=== PATIENT | female | born 1980 | race Caucasian/White ===

== ENCOUNTER 2020-10-07 10:40 | Outpatient (REF) | payer OTHER, SELFPAY ==
[2020-10-07 14:24] LABS: Glucose Urine UA NEG (NEG); Leukocyte Esterase Urine NEG (NEG); Nitrite Urine NEG (NEG); Urine Blood NEG (NEG); Urine Ketones NEG (NEG); Urine Protein NEG (NEG-TRACE)
[2020-10-07 14:28] LABS: Appearance Urine CLEAR; Color Urine YELLOW
== END 2020-10-07 10:41 | disposition home or self-care (01) ==
LOC: HO.HMGCLDS 10:40
PROVIDERS: PCP Internal Medicine; Visit Provider Internal Medicine
DX: E03.9 Hypothyroidism, unspecified (principal); E78.2 Mixed hyperlipidemia; M99.04 Segmental and somatic dysfunction of sacral region; F32.9 Major depressive disorder, single episode, unspecified
CPT/HCPCS: 81003

== ENCOUNTER 2020-10-13 08:18 | Outpatient (REF) | payer OTHER, SELFPAY ==
[2020-10-13 11:30] LABS: Hematocrit 40.7 % (37-47); Mean Corpuscular HGB Conc 31.9 g/dl (31.0-35.0); Mean Corpuscular Hemoglobin 29.1 pg (27.0-33.0); Mean Corpuscular Volume 91.3 fL (80-98); Platelet Count 283 X10*3/uL (160-400); Red Blood Count 4.46 X10*6/uL (4.20-5.50); Red Cell Distribution Width 13.2 % (11.0-16.0); White Blood Count 6.2 X10*3/uL (4.8-10.8)
[2020-10-13 11:45] LABS: Alanine Aminotransferase 14 U/L (0-31); Albumin Level 4.6 g/dL (3.5-5.0); Alkaline Phosphatase 68 U/L (39-117); Anion Gap 13 (12-20); Aspartate Amino Transferase 15 U/L (5-31); Bilirubin Total 0.2 mg/dL (0.0-1.0); Blood Urea Nitrogen 8 mg/dL (9-16); Carbon Dioxide 22 mmol/L (22-29); Chloride 103 mmol/L (96-108); Cholesterol 243 mg/dL; Estimated Glomerular Filt Rate > 60; Glucose Fasting 91 mg/dL (60-99); HDL Cholesterol 73 mg/dL; LDL Cholesterol Calculated 155 mg/dl; Potassium 3.4 mmol/l (3.3-5.1); Sodium 135 mmol/L (135-145); Total Protein 7.5 g/dL (6.5-8.0); Triglycerides 78 mg/dL
[2020-10-13 12:10] LABS: TSH reflex Free T4 4.27 mIU/mL (0.32-4.0)
[2020-10-13 12:52] LABS: Free T4 (Free Thyroxine) 0.86 ng/dL (0.71-1.85)
== END 2020-10-13 08:19 | disposition home or self-care (01) ==
LOC: HO.HMGCLDS 08:18
PROVIDERS: PCP Internal Medicine; Visit Provider Internal Medicine
DX: F32.9 Major depressive disorder, single episode, unspecified (principal); E78.2 Mixed hyperlipidemia; E03.9 Hypothyroidism, unspecified; M99.04 Segmental and somatic dysfunction of sacral region
CPT/HCPCS: 36415; 80053; 80061; 84439; 84443; 85027

== ENCOUNTER 2020-12-15 08:38 | Outpatient (REF) | payer OTHER, SELFPAY ==
[2020-12-15 11:57] LABS: Alanine Aminotransferase 18 U/L (0-31); Albumin Level 4.6 g/dL (3.5-5.0); Alkaline Phosphatase 75 U/L (39-117); Anion Gap 12 (12-20); Aspartate Amino Transferase 16 U/L (5-31); Bilirubin Total 0.4 mg/dL (0.0-1.0); Blood Urea Nitrogen 10 mg/dL (9-16); Carbon Dioxide 23 mmol/L (22-29); Chloride 105 mmol/L (96-108); Cholesterol 305 mg/dL; Estimated Glomerular Filt Rate > 60; Glucose Fasting 97 mg/dL (60-99); HDL Cholesterol 56 mg/dL; LDL Cholesterol Calculated 219 mg/dl; Sodium 136 mmol/L (135-145); Total Protein 7.5 g/dL (6.5-8.0); Triglycerides 150 mg/dL
[2020-12-15 11:59] LABS: TSH reflex Free T4 2.91 uIU/mL (0.32-4.0)
== END 2020-12-15 08:39 | disposition home or self-care (01) ==
LOC: HO.HMGCLDS 08:38
PROVIDERS: Internal Medicine; PCP Nurse Practitioner Family; Visit Provider Nurse Practitioner Family
DX: E78.2 Mixed hyperlipidemia (principal); E03.9 Hypothyroidism, unspecified; F32.9 Major depressive disorder, single episode, unspecified
CPT/HCPCS: 36415; 80053; 80061; 84443

== ENCOUNTER 2021-01-12 12:06 | Outpatient (REF) | payer OTHER, SELFPAY | END 2021-01-12 12:07 | disposition home or self-care (01) | LOC: HO.LAB 12:06 | PROVIDERS: Visit Provider Nurse Practitioner Family | DX: J01.00 Acute maxillary sinusitis, unspecified (principal); H65.03 Acute serous otitis media, bilateral; Z20.822 Contact with and (suspected) exposure to COVID-19 | CPT/HCPCS: 36415; U0003; U0005 ==

== ENCOUNTER 2021-01-24 09:09 | Outpatient (REF) | payer OTHER, SELFPAY ==
[2021-01-24 12:07] LABS: Cholesterol 264 mg/dL; HDL Cholesterol 59 mg/dL; LDL Cholesterol Calculated 182 mg/dl; Triglycerides 119 mg/dL
[2021-01-24 12:11] LABS: TSH reflex Free T4 3.77 uIU/mL (0.32-4.0)
== END 2021-01-24 09:10 | disposition home or self-care (01) ==
LOC: HO.HMGCLDS 09:09
PROVIDERS: Internal Medicine; PCP Nurse Practitioner Family; Visit Provider Nurse Practitioner Family
DX: E03.9 Hypothyroidism, unspecified (principal); E78.2 Mixed hyperlipidemia; F32.9 Major depressive disorder, single episode, unspecified
CPT/HCPCS: 36415; 80061; 84443

== ENCOUNTER 2021-02-03 07:58 | Outpatient (REF) | payer OTHER, SELFPAY ==
[2021-02-03 12:08] LABS: Cholesterol 257 mg/dL; HDL Cholesterol 58 mg/dL; LDL Cholesterol Calculated 159 mg/dl; Triglycerides 204 mg/dL
== END 2021-02-03 07:59 | disposition home or self-care (01) ==
LOC: HO.HMGCLDS 07:58
PROVIDERS: PCP Nurse Practitioner Family; Visit Provider Nurse Practitioner Family
DX: E78.2 Mixed hyperlipidemia (principal)
CPT/HCPCS: 36415; 80061

== ENCOUNTER 2021-02-23 15:14 | Outpatient (REF) | payer OTHER, SELFPAY ==
--- NOTE | ~2021-02-23 | MM_ITS ---
EXAMINATION: MM SCREENING DIGITAL BREAST TOMOSYNTHESIS, BILATERAL CLINICAL INFORMATION: Screening. Asymptomatic. The lifetime risk of breast cancer based on the Tyrer-Cuzick Model is 18.0%. COMPARISON: Mammography: None TECHNIQUE: Digital breast tomosynthesis is performed in both the craniocaudal and mediolateral oblique views along with computer-aided detection (CAD). Synthesized 2D images are generated from the tomosynthesis. FINDINGS: The breasts are heterogeneously dense, which may obscure small masses (ACR BI-RADS breast composition Category c). There are no significant masses, abnormal calcifications, or other abnormalities. MM/MM tomosynthesis screening BI IMPRESSION: There are no significant changes from prior study. ASSESSMENT: BI-RADS 1: Negative RECOMMENDATION: Routine annual mammography screening. This patient's information was entered into a reminder system with a target due date for their next mammogram.
== END 2021-02-23 15:15 | disposition home or self-care (01) ==
LOC: HO.MAMMO 15:14
PROVIDERS: Visit Provider Nurse Practitioner Family
DX: Z12.31 Encounter for screening mammogram for malignant neoplasm of breast (principal)
CPT/HCPCS: 77063; 77067

== ENCOUNTER 2021-04-15 08:34 | Outpatient (REF) | payer OTHER, SELFPAY ==
[2021-04-15 12:30] LABS: Cholesterol 166 mg/dL; HDL Cholesterol 38 mg/dL; LDL Cholesterol Calculated 78 mg/dl; Triglycerides 250 mg/dL
== END 2021-04-15 08:35 | disposition home or self-care (01) ==
LOC: HO.HMGCLDS 08:34
PROVIDERS: PCP Nurse Practitioner Family; Visit Provider Nurse Practitioner Family
DX: E78.2 Mixed hyperlipidemia (principal)
CPT/HCPCS: 36415; 80061

== ENCOUNTER 2021-05-12 11:01 | Outpatient (REF) | payer OTHER, SELFPAY ==
--- NOTE | ~2021-05-12 | XR_ITS ---
EXAMINATION: XR RIBS, LEFT CLINICAL INFORMATION: Pleurodynia COMPARISON: None TECHNIQUE: PA chest and three-view left ribs FINDINGS: There is no evidence of acute parenchymal disease, pneumothorax, or pleural effusion. Heart normal size. No evidence of pulmonary edema. Discoid atelectasis or scarring is seen at the left base. No suspicious destructive bony lesion about the left ribs is identified. There is a nondisplaced fracture involving the anterior aspect of the left 10th rib. XR/XR ribs LT min 3V w CXR1V IMPRESSION: Minimal atelectasis or scarring at the left lung base. Nondisplaced fracture anterior aspect of the left 10th rib.
== END 2021-05-12 11:02 | disposition home or self-care (01) ==
LOC: HO.HMGCX 11:01
PROVIDERS: PCP Nurse Practitioner Family; Visit Provider Hospitalist
DX: R07.81 Pleurodynia (principal)
CPT/HCPCS: 71101

== ENCOUNTER 2021-08-08 08:01 | Outpatient (REF) | payer OTHER, SELFPAY ==
[2021-08-08 11:50] LABS: Alanine Aminotransferase 35 U/L (0-31); Alkaline Phosphatase 109 U/L (39-117); Anion Gap 12 (12-20); Aspartate Amino Transferase 20 U/L (5-31); Bilirubin Total 0.2 mg/dL (0.0-1.0); Blood Urea Nitrogen 12 mg/dL (9-16); Calcium 9.1 mg/dL (8.4-10.2); Carbon Dioxide 20 mmol/L (22-29); Chloride 112 mmol/L (96-108); Cholesterol 191 mg/dL; Estimated Glomerular Filt Rate > 60; Glucose Fasting 106 mg/dL (60-99); HDL Cholesterol 41 mg/dL; LDL Cholesterol Calculated 128 mg/dl; Sodium 140 mmol/L (135-145); Total Protein 6.8 g/dL (6.5-8.0); Triglycerides 112 mg/dL
[2021-08-08 12:49] LABS: Free T4 (Free Thyroxine) 0.72 ng/dL (0.71-1.85)
== END 2021-08-08 08:02 | disposition home or self-care (01) ==
LOC: HO.HMGCLDS 08:01
PROVIDERS: PCP Nurse Practitioner Family; Visit Provider Nurse Practitioner Family
DX: Z00.00 Encounter for general adult medical examination without abnormal findings (principal); Z13.29 Encounter for screening for other suspected endocrine disorder; E78.2 Mixed hyperlipidemia
CPT/HCPCS: 36415; 80053; 80061; 84439; 84443

== ENCOUNTER 2021-09-30 09:00 | Outpatient (REF) | payer OTHER, SELFPAY ==
[2021-09-30 12:05] LABS: TSH reflex Free T4 3.15 uIU/mL (0.32-4.0)
[2021-09-30 12:09] LABS: Cholesterol 180 mg/dL; HDL Cholesterol 47 mg/dL; LDL Cholesterol Calculated 109 mg/dl; Triglycerides 120 mg/dL
== END 2021-09-30 09:01 | disposition home or self-care (01) ==
LOC: HO.HMGCLDS 09:00
PROVIDERS: PCP Nurse Practitioner Family; Visit Provider Nurse Practitioner Family
DX: E78.2 Mixed hyperlipidemia (principal); E03.9 Hypothyroidism, unspecified
CPT/HCPCS: 36415; 80061; 84443

== ENCOUNTER 2022-02-24 08:25 | Outpatient (REF) | payer OTHER, SELFPAY ==
[2022-02-24 11:27] LABS: Appearance Urine HAZY; Color Urine YELLOW; Glucose Urine UA NEG (NEG); Leukocyte Esterase Urine NEG (NEG); MANUAL DIFF FLAG NO; Nitrite Urine NEG (NEG); PH 6.5 (5.0-8.0); Specific Gravity - Urine <= 1.005 (1.005-1.025); Urine Blood NEG (NEG); Urine Ketones NEG (NEG); Urine Protein NEG (NEG-TRACE)
[2022-02-24 11:30] LABS: Basophils Absolute Auto 0.1 X10*3/uL (0.0-0.2); Basophils Percent Auto 0.8 % (0-2); Eosinophils Absolute Auto 0.2 X10*3/uL (0.0-0.4); Eosinophils Percent Auto 2.8 % (0-4); Hematocrit 39.9 % (37.0-47.0); Hemoglobin 12.7 g/dl (12.0-16.0); Imm Gran Abs Auto 0.01 X10*3/uL (0.00-0.03); Imm Gran Pct Auto 0.2 % (0.0-0.4); Lymphocytes Absolute Auto 2.1 X10*3/uL (1.2-4.9); Lymphocytes Percent Auto 34.5 % (20-40); Mean Corpuscular HGB Conc 31.8 g/dl (31.0-35.0); Mean Corpuscular Hemoglobin 30.8 pg (27.0-33.0); Mean Corpuscular Volume 96.8 fL (80.0-98.0); Mean Platelet Volume 10.7 fL (9.4-12.3); Monocytes Absolute Auto 0.3 X10*3/uL (0.1-1.2); Monocytes Percent Auto 4.4 % (2-11); Neutrophils Absolute Auto 3.5 x10*3/uL (2.0-8.3); Neutrophils Percent Auto 57.3 % (45-73); Platelet Count 285 X10*3/uL (160-400); Red Blood Count 4.12 X10*6/uL (4.20-5.50); Red Cell Distribution Width 14.5 % (11.0-16.0); White Blood Count 6.1 X10*3/uL (4.8-10.8)
[2022-02-24 12:02] LABS: Alanine Aminotransferase 21 U/L (0-31); Alkaline Phosphatase 83 U/L (39-117); Anion Gap 10 (12-20); Aspartate Amino Transferase 15 U/L (5-31); Bilirubin Total 0.4 mg/dL (0.0-1.0); Blood Urea Nitrogen 11 mg/dL (9-16); Calcium 9.3 mg/dL (8.4-10.2); Carbon Dioxide 23 mmol/L (22-29); Chloride 109 mmol/L (96-108); Cholesterol 172 mg/dL; Estimated Glomerular Filt Rate > 60; Glucose Fasting 93 mg/dL (60-99); HDL Cholesterol 48 mg/dL; LDL Cholesterol Calculated 99 mg/dl; Potassium 3.6 mmol/L (3.3-5.1); Sodium 138 mmol/L (135-145); Total Protein 6.9 g/dL (6.5-8.0); Triglycerides 129 mg/dL
[2022-02-24 12:18] LABS: Folate 3.5 ng/mL (> or = 4.0); Vitamin B12 417 pg/mL (200-900)
[2022-02-24 12:36] LABS: TSH reflex Free T4 5.06 uIU/mL (0.32-4.0)
[2022-02-24 13:13] LABS: Free T4 (Free Thyroxine) 0.73 ng/dL (0.71-1.85)
== END 2022-02-24 08:26 | disposition home or self-care (01) ==
LOC: HO.HMGCLDS 08:25
PROVIDERS: PCP Nurse Practitioner Family; Visit Provider Nurse Practitioner Family
DX: E03.9 Hypothyroidism, unspecified (principal); E66.9 Obesity, unspecified
CPT/HCPCS: 36415; 80053; 80061; 81003; 82607; 82746; 84439; 84443; 85025

== ENCOUNTER 2022-04-05 08:03 | Outpatient (REF) | payer OTHER, SELFPAY ==
[2022-04-05 09:22] LABS: MANUAL DIFF FLAG NO
[2022-04-05 10:09] LABS: Basophils Absolute Auto 0.1 X10*3/uL (0.0-0.2); Basophils Percent Auto 1.4 % (0-2); Eosinophils Absolute Auto 0.3 X10*3/uL (0.0-0.4); Eosinophils Percent Auto 5.3 % (0-4); Hematocrit 38.3 % (37.0-47.0); Hemoglobin 12.5 g/dl (12.0-16.0); Imm Gran Abs Auto 0.02 X10*3/uL (0.00-0.03); Imm Gran Pct Auto 0.3 % (0.0-0.4); Lymphocytes Absolute Auto 2.1 X10*3/uL (1.2-4.9); Lymphocytes Percent Auto 35.1 % (20-40); Mean Corpuscular HGB Conc 32.6 g/dl (31.0-35.0); Mean Corpuscular Hemoglobin 30.8 pg (27.0-33.0); Mean Corpuscular Volume 94.3 fL (80.0-98.0); Mean Platelet Volume 10.4 fL (9.4-12.3); Monocytes Absolute Auto 0.3 X10*3/uL (0.1-1.2); Monocytes Percent Auto 4.6 % (2-11); Neutrophils Absolute Auto 3.1 x10*3/uL (2.0-8.3); Neutrophils Percent Auto 53.3 % (45-73); Platelet Count 259 X10*3/uL (160-400); Red Blood Count 4.06 X10*6/uL (4.20-5.50); Red Cell Distribution Width 13.9 % (11.0-16.0); White Blood Count 5.9 X10*3/uL (4.8-10.8)
[2022-04-05 10:58] LABS: Alanine Aminotransferase 20 U/L (0-31); Albumin Level 3.8 g/dL (3.5-5.0); Alkaline Phosphatase 77 U/L (39-117); Anion Gap 14 (12-20); Aspartate Amino Transferase 16 U/L (5-31); Blood Urea Nitrogen 5 mg/dL (9-16); Calcium 9.3 mg/dL (8.4-10.2); Carbon Dioxide 20 mmol/L (22-29); Chloride 107 mmol/L (96-108); Estimated Glomerular Filt Rate > 60; Glucose Random 95 mg/dL (60-115); Potassium 3.5 mmol/L (3.3-5.1); Sodium 137 mmol/L (135-145); Total Protein 6.6 g/dL (6.5-8.0)
[2022-04-05 11:10] LABS: Bilirubin Total < 0.2 mg/dL (0.0-1.0)
[2022-04-05 11:11] LABS: TSH reflex Free T4 8.18 uIU/mL (0.32-4.0)
[2022-04-05 11:43] LABS: Free T4 (Free Thyroxine) 0.93 ng/dL (0.71-1.85)
[2022-04-05 11:50] LABS: Folate > 20.0 ng/mL (> or = 4.0)
[2022-04-05 12:48] LABS: Cortisol Random 8.9 ug/dL
[2022-04-07 20:17] LABS: Adrenocorticotropic Hormone 7 pg/mL (6-50)
[2022-04-11 11:11] LABS: Renin 3.63 ng/mL/h (0.25-5.82)
== END 2022-04-05 08:04 | disposition home or self-care (01) ==
LOC: HO.HMGCLDS 08:03
PROVIDERS: PCP Nurse Practitioner Family; Visit Provider Nurse Practitioner Family
DX: E53.8 Deficiency of other specified B group vitamins (principal); R79.89 Other specified abnormal findings of blood chemistry; I95.9 Hypotension, unspecified
CPT/HCPCS: 36415; 80053; 82024; 82088; 82533; 82746; 84244; 84439; 84443; 85025

== ENCOUNTER 2022-04-26 11:17 | Outpatient (REF) | payer OTHER, SELFPAY ==
[2022-04-26 14:05] LABS: Sodium 137 mmol/L (135-145)
== END 2022-04-26 11:18 | disposition home or self-care (01) ==
LOC: HO.HMGCLDS 11:17
PROVIDERS: PCP Nurse Practitioner Family; Visit Provider Psychiatry & Neurology Psychiatry
DX: F41.1 Generalized anxiety disorder (principal); F43.10 Post-traumatic stress disorder, unspecified; F33.2 Major depressive disorder, recurrent severe without psychotic features
CPT/HCPCS: 36415; 84295

== ENCOUNTER 2022-05-01 12:15 | Outpatient (REF) | payer OTHER, SELFPAY ==
[2022-05-01 13:36] LABS: MANUAL DIFF FLAG NO
[2022-05-01 13:41] LABS: Basophils Percent Auto 0.7 % (0-2); Eosinophils Absolute Auto 0.2 X10*3/uL (0.0-0.4); Eosinophils Percent Auto 5.3 % (0-4); Hematocrit 33.5 % (37.0-47.0); Hemoglobin 10.7 g/dl (12.0-16.0); Imm Gran Abs Auto 0.01 X10*3/uL (0.00-0.03); Imm Gran Pct Auto 0.2 % (0.0-0.4); Lymphocytes Absolute Auto 1.8 X10*3/uL (1.2-4.9); Lymphocytes Percent Auto 40.9 % (20-40); Mean Corpuscular HGB Conc 31.9 g/dl (31.0-35.0); Mean Corpuscular Hemoglobin 30.8 pg (27.0-33.0); Mean Corpuscular Volume 96.5 fL (80.0-98.0); Monocytes Absolute Auto 0.4 X10*3/uL (0.1-1.2); Monocytes Percent Auto 8.9 % (2-11); Neutrophils Absolute Auto 1.9 x10*3/uL (2.0-8.3); Platelet Count 241 X10*3/uL (160-400); Red Blood Count 3.47 X10*6/uL (4.20-5.50); Red Cell Distribution Width 14.5 % (11.0-16.0); White Blood Count 4.4 X10*3/uL (4.8-10.8)
[2022-05-01 14:02] LABS: Appearance Urine CLEAR; Color Urine YELLOW; Glucose Urine UA NEG (NEG); Leukocyte Esterase Urine NEG (NEG); Nitrite Urine POS (NEG); Specific Gravity - Urine <= 1.005 (1.005-1.025); Urine Blood NEG (NEG); Urine Ketones NEG (NEG); Urine Protein NEG (NEG-TRACE)
[2022-05-01 14:44] LABS: RBC Urine 0 /HPF (0); Squamous Epithelial Cell Urine 1+ /LPF; WBC Urine 0 /HPF (0-4)
[2022-05-01 15:18] LABS: Alanine Aminotransferase 16 U/L (0-31); Alkaline Phosphatase 75 U/L (39-117); Anion Gap 11 (12-20); Aspartate Amino Transferase 19 U/L (5-31); Bilirubin Total 0.3 mg/dL (0.0-1.0); Blood Urea Nitrogen 3 mg/dL (9-16); Calcium 8.4 mg/dL (8.4-10.2); Carbon Dioxide 23 mmol/L (22-29); Chloride 102 mmol/L (96-108); Estimated Glomerular Filt Rate > 60; Glucose Random 84 mg/dL (60-115); Potassium 3.1 mmol/L (3.3-5.1); Sodium 133 mmol/L (135-145); Total Protein 6.5 g/dL (6.5-8.0)
== END 2022-05-01 12:16 | disposition home or self-care (01) ==
LOC: HO.HMGCLDS 12:15
PROVIDERS: Visit Provider Nurse Practitioner Family
DX: N39.0 Urinary tract infection, site not specified (principal)
CPT/HCPCS: 36415; 80053; 81001; 85025; 87086

== ENCOUNTER 2022-05-11 11:04 | Outpatient (REF) | payer OTHER, SELFPAY ==
[2022-05-11 14:21] LABS: Appearance Urine HAZY; Color Urine YELLOW; Glucose Urine UA NEG (NEG); Leukocyte Esterase Urine NEG (NEG); Nitrite Urine NEG (NEG); PH 5.5 (5.0-8.0); Specific Gravity - Urine <= 1.005 (1.005-1.025); Urine Blood NEG (NEG); Urine Ketones NEG (NEG); Urine Protein NEG (NEG-TRACE)
[2022-05-11 14:50] LABS: RBC Urine 0 /HPF (0); Squamous Epithelial Cell Urine TRACE /LPF; WBC Urine 0 /HPF (0-4)
== END 2022-05-11 11:05 | disposition home or self-care (01) ==
LOC: HO.HMGCLDS 11:04
PROVIDERS: PCP Nurse Practitioner Family; Visit Provider Nurse Practitioner Family
DX: N39.0 Urinary tract infection, site not specified (principal)
CPT/HCPCS: 81001; 87086

== ENCOUNTER 2022-05-29 10:29 | Outpatient (REF) | payer OTHER, SELFPAY ==
[2022-05-29 11:14] LABS: MANUAL DIFF FLAG NO
[2022-05-29 11:22] LABS: Basophils Percent Auto 0.7 % (0-2); Eosinophils Percent Auto 0.5 % (0-4); Hemoglobin 13.9 g/dl (12.0-16.0); Imm Gran Abs Auto 0.02 X10*3/uL (0.00-0.03); Imm Gran Pct Auto 0.4 % (0.0-0.4); Immature Retic Fraction 8.2 % (3.0-15.9); Lymphocytes Absolute Auto 1.5 X10*3/uL (1.2-4.9); Lymphocytes Percent Auto 26.9 % (20-40); Mean Corpuscular HGB Conc 33.1 g/dl (31.0-35.0); Mean Corpuscular Hemoglobin 31.5 pg (27.0-33.0); Mean Corpuscular Volume 95.2 fL (80.0-98.0); Mean Platelet Volume 9.6 fL (9.4-12.3); Monocytes Absolute Auto 0.3 X10*3/uL (0.1-1.2); Monocytes Percent Auto 5.6 % (2-11); Neutrophils Absolute Auto 3.7 x10*3/uL (2.0-8.3); Neutrophils Percent Auto 65.9 % (45-73); Platelet Count 284 X10*3/uL (160-400); Red Blood Count 4.41 X10*6/uL (4.20-5.50); Red Cell Distribution Width 13.5 % (11.0-16.0); Retic HGB Equivalent 36.6 pg (30.0-35.0); Reticulocyte Percent 1.7 % (0.5-1.8); Reticulocytes Absolute 0.073 X10*6/uL (0.026-0.095); White Blood Count 5.6 X10*3/uL (4.8-10.8)
[2022-05-29 11:46] LABS: Anion Gap 20 (12-20); Carbon Dioxide 17 mmol/L (22-29); Chloride 103 mmol/L (96-108); Iron 74 mcg/dL (30-160); Percent Iron Saturation 28 % (15-50); Potassium 3.1 mmol/L (3.3-5.1); Sodium 137 mmol/L (135-145); Total Iron Binding Capacity 263 mcg/dL (228-428); Unsaturated Iron Binding 189 ug/dL
[2022-05-29 12:10] LABS: Ferritin 37 ng/mL (10-250); TSH reflex Free T4 0.03 uIU/mL (0.32-4.0)
[2022-05-29 12:51] LABS: Free T4 (Free Thyroxine) 1.62 ng/dL (0.71-1.85)
[2022-05-29 12:53] LABS: Folate > 20.0 ng/mL (> or = 4.0); Vitamin B12 1127 pg/mL (200-900)
== END 2022-05-29 10:30 | disposition home or self-care (01) ==
LOC: HO.HMGCLDS 10:29
PROVIDERS: Visit Provider Nurse Practitioner Family
DX: R79.89 Other specified abnormal findings of blood chemistry (principal); E87.6 Hypokalemia; D64.9 Anemia, unspecified
CPT/HCPCS: 36415; 80051; 82607; 82728; 82746; 83540; 84439; 84443; 85025; 85045

== ENCOUNTER 2022-06-07 11:58 | Outpatient (REF) | payer OTHER, SELFPAY ==
[2022-06-07 13:28] LABS: MANUAL DIFF FLAG NO
[2022-06-07 13:38] LABS: Basophils Percent Auto 0.7 % (0-2); Eosinophils Percent Auto 0.9 % (0-4); Hemoglobin 13.5 g/dl (12.0-16.0); Imm Gran Abs Auto 0.04 X10*3/uL (0.00-0.03); Imm Gran Pct Auto 0.9 % (0.0-0.4); Lymphocytes Absolute Auto 1.6 X10*3/uL (1.2-4.9); Lymphocytes Percent Auto 35.2 % (20-40); Mean Corpuscular HGB Conc 33.8 g/dl (31.0-35.0); Mean Corpuscular Hemoglobin 31.5 pg (27.0-33.0); Mean Corpuscular Volume 93.2 fL (80.0-98.0); Mean Platelet Volume 10.6 fL (9.4-12.3); Monocytes Absolute Auto 0.3 X10*3/uL (0.1-1.2); Monocytes Percent Auto 7.2 % (2-11); Neutrophils Absolute Auto 2.5 x10*3/uL (2.0-8.3); Neutrophils Percent Auto 55.1 % (45-73); Platelet Count 274 X10*3/uL (160-400); Red Blood Count 4.29 X10*6/uL (4.20-5.50); Red Cell Distribution Width 13.9 % (11.0-16.0); White Blood Count 4.5 X10*3/uL (4.8-10.8)
[2022-06-07 14:34] LABS: TSH reflex Free T4 0.17 uIU/mL (0.32-4.0)
[2022-06-07 15:08] LABS: Alanine Aminotransferase 16 U/L (0-31); Albumin Level 4.3 g/dL (3.5-5.0); Alkaline Phosphatase 70 U/L (39-117); Anion Gap 17 (12-20); Aspartate Amino Transferase 16 U/L (5-31); Bilirubin Total 0.3 mg/dL (0.0-1.0); Blood Urea Nitrogen 8 mg/dL (9-16); Carbon Dioxide 20 mmol/L (22-29); Chloride 105 mmol/L (96-108); Estimated Glomerular Filt Rate > 60; Glucose Random 83 mg/dL (60-115); Potassium 3.3 mmol/L (3.3-5.1); Sodium 139 mmol/L (135-145); Total Protein 6.8 g/dL (6.5-8.0)
[2022-06-07 15:49] LABS: Free T4 (Free Thyroxine) 1.26 ng/dL (0.71-1.85)
== END 2022-06-07 11:59 | disposition home or self-care (01) ==
LOC: HO.HMGCLDS 11:58
PROVIDERS: PCP Nurse Practitioner Family; Visit Provider Nurse Practitioner Family
DX: F43.10 Post-traumatic stress disorder, unspecified (principal); R44.3 Hallucinations, unspecified
CPT/HCPCS: 36415; 80053; 84439; 84443; 85025; 87086

== ENCOUNTER 2022-06-08 11:37 | Outpatient (REF) | payer OTHER, SELFPAY ==
[2022-06-08 13:58] LABS: Appearance Urine CLEAR; Color Urine YELLOW; Glucose Urine UA NEG (NEG); Leukocyte Esterase Urine NEG (NEG); Nitrite Urine NEG (NEG); Urine Blood NEG (NEG); Urine Ketones >=80 MG/DL (NEG); Urine Protein NEG (NEG-TRACE)
== END 2022-06-08 11:38 | disposition home or self-care (01) ==
LOC: HO.HMGCLDS 11:37
PROVIDERS: PCP Nurse Practitioner Family; Visit Provider Nurse Practitioner Family
DX: N39.0 Urinary tract infection, site not specified (principal)
CPT/HCPCS: 81003; 87086

== ENCOUNTER 2022-06-28 11:27 | Outpatient (REF) | payer OTHER, SELFPAY ==
[2022-06-28 14:48] LABS: TSH reflex Free T4 0.01 uIU/mL (0.32-4.0)
[2022-06-28 15:34] LABS: Free T4 (Free Thyroxine) 1.19 ng/dL (0.71-1.85)
== END 2022-06-28 11:28 | disposition home or self-care (01) ==
LOC: HO.HMGCLDS 11:27
PROVIDERS: PCP Nurse Practitioner Family; Visit Provider Nurse Practitioner Family
DX: E03.9 Hypothyroidism, unspecified (principal)
CPT/HCPCS: 36415; 84439; 84443

== ENCOUNTER 2022-06-29 11:00 | Outpatient (REF) | payer OTHER, SELFPAY ==
[2022-06-29 14:53] LABS: Appearance Urine Cloudy; Color Urine Yellow; Glucose Urine UA Negative (Negative); Leukocyte Esterase Urine Negative (Negative); Nitrite Urine Negative (Negative); PH 6.5 (5.0-8.0); Specific Gravity - Urine <= 1.005 (1.005-1.025); Urine Blood Negative (Negative); Urine Ketones Negative (Negative); Urine Protein Negative (Neg-Trace)
[2022-06-29 15:39] LABS: Bacteria Urine 4+ (None Seen); Granular Casts Urine Present; RBC Urine 0-2 /HPF (0-2); WBC Urine 21-50 /HPF (0-5)
== END 2022-06-29 11:01 | disposition home or self-care (01) ==
LOC: HO.HMGCLDS 11:00
PROVIDERS: PCP Nurse Practitioner Family; Visit Provider Nurse Practitioner Family
DX: N39.0 Urinary tract infection, site not specified (principal); R44.3 Hallucinations, unspecified; F43.10 Post-traumatic stress disorder, unspecified
CPT/HCPCS: 81001; 87086

== ENCOUNTER → 2022-07-19 14:27 | Outpatient (BNVA) | payer OTHER, SELFPAY | PROVIDERS: PCP Nurse Practitioner Family; Referring Provider Nurse Practitioner Family; Visit Provider Internal Medicine | DX: I95.9 Hypotension, unspecified (principal) | CPT/HCPCS: 99202 ==

== ENCOUNTER 2022-07-31 12:42 | Outpatient (REF) | payer OTHER, SELFPAY ==
[2022-07-31 16:33] LABS: Appearance Urine Clear; Color Urine Yellow; Glucose Urine UA Negative (Negative); Leukocyte Esterase Urine Negative (Negative); Nitrite Urine Negative (Negative); PH 6.5 (5.0-9.0); Specific Gravity - Urine <= 1.005 (1.005-1.025); Urine Blood Negative (Negative); Urine Ketones Negative (Negative); Urine Protein Negative (Neg-Trace)
[2022-07-31 16:37] LABS: Bacteria Urine 1+ (None Seen); Hyaline Casts Urine 0-2 /LPF (0-2)
== END 2022-07-31 12:43 | disposition home or self-care (01) ==
LOC: HO.HMGCLDS 12:42
PROVIDERS: PCP Nurse Practitioner Family; Visit Provider Nurse Practitioner Family
DX: R44.3 Hallucinations, unspecified (principal)
CPT/HCPCS: 81001; 87086

== ENCOUNTER 2022-12-05 12:06 | Outpatient (REF) | payer OTHER, SELFPAY ==
[2022-12-05 13:58] LABS: Appearance Urine Cloudy; Color Urine Yellow; Glucose Urine UA Negative (Negative); Leukocyte Esterase Urine Negative (Negative); Nitrite Urine Negative (Negative); Specific Gravity - Urine <= 1.005 (1.005-1.025); UMIC TRIGGER UACC YES; Urine Blood Large (3+) (Negative); Urine Ketones Negative (Negative); Urine Protein Negative (Neg-Trace)
[2022-12-05 14:00] LABS: Bacteria Urine None Seen (None Seen); Hyaline Casts Urine 0-2 /LPF (0-2); RBC Urine >20 /HPF (0-2); WBC Urine 0-5 /HPF (0-5)
== END 2022-12-05 12:07 | disposition home or self-care (01) ==
LOC: HO.HMGCLDS 12:06
PROVIDERS: PCP Nurse Practitioner Family; Visit Provider Nurse Practitioner Family
DX: F43.10 Post-traumatic stress disorder, unspecified (principal); E03.9 Hypothyroidism, unspecified
CPT/HCPCS: 81001

== ENCOUNTER 2023-02-01 15:01 | Outpatient (REF) | payer OTHER, SELFPAY ==
--- NOTE | ~2023-02-01 | MM_ITS ---
EXAMINATION: MM SCREENING DIGITAL BREAST TOMOSYNTHESIS, BILATERAL CLINICAL INFORMATION: Screening. Asymptomatic. The lifetime risk of breast cancer based on the Tyrer-Cuzick Model is 19.3%. COMPARISON: Mammography: February 23, 2021 TECHNIQUE: Digital breast tomosynthesis is performed in both the craniocaudal and mediolateral oblique views along with computer-aided detection (CAD). Synthesized 2D images are generated from the tomosynthesis. FINDINGS: The breasts are heterogeneously dense, which may obscure small masses (ACR BI-RADS breast composition Category c). There are no significant masses, abnormal calcifications, or other abnormalities. MM/MM tomosynthesis screening BI IMPRESSION: No significant changes from prior exam. ASSESSMENT: BI-RADS 1: Negative RECOMMENDATION: Routine annual mammography screening. This patient's information was entered into a reminder system with a target due date for their next mammogram.
== END 2023-02-01 15:02 | disposition home or self-care (01) ==
LOC: HO.MAMMO 15:01
PROVIDERS: PCP Nurse Practitioner Family; Visit Provider Nurse Practitioner Family
DX: Z12.31 Encounter for screening mammogram for malignant neoplasm of breast (principal)
CPT/HCPCS: 77063; 77067

== ENCOUNTER 2023-03-28 13:50 | Outpatient (REF) | payer OTHER, SELFPAY ==
[2023-03-28 16:25] LABS: MANUAL DIFF FLAG NO
[2023-03-28 16:28] LABS: Appearance Urine Clear; Color Urine Yellow; Glucose Urine UA Negative (Negative); Leukocyte Esterase Urine Negative (Negative); Nitrite Urine Negative (Negative); Specific Gravity - Urine <= 1.005 (1.005-1.025); Urine Blood Negative (Negative); Urine Ketones Negative (Negative); Urine Protein Negative (Neg-Trace)
[2023-03-28 16:30] LABS: Basophils Absolute Auto 0.1 X10*3/uL (0.0-0.2); Basophils Percent Auto 1.4 % (0-2); Eosinophils Absolute Auto 0.1 X10*3/uL (0.0-0.4); Eosinophils Percent Auto 2.3 % (0-4); Hematocrit 34.2 % (37.0-47.0); Lymphocytes Absolute Auto 1.6 X10*3/uL (1.2-4.9); Lymphocytes Percent Auto 45.8 % (20-40); Mean Corpuscular HGB Conc 32.2 g/dl (31.0-35.0); Mean Corpuscular Hemoglobin 30.2 pg (27.0-33.0); Mean Platelet Volume 9.6 fL (9.4-12.3); Monocytes Absolute Auto 0.2 X10*3/uL (0.1-1.2); Monocytes Percent Auto 6.8 % (2-11); Neutrophils Absolute Auto 1.6 x10*3/uL (2.0-8.3); Neutrophils Percent Auto 43.7 % (45-73); Platelet Count 212 X10*3/uL (160-400); Red Blood Count 3.64 X10*6/uL (4.20-5.50); Red Cell Distribution Width 13.2 % (11.0-16.0); White Blood Count 3.5 X10*3/uL (4.8-10.8)
[2023-03-28 16:49] LABS: Alanine Aminotransferase 24 U/L (0-31); Albumin Level 4.3 g/dL (3.5-5.0); Alkaline Phosphatase 61 U/L (39-117); Anion Gap 9 (12-20); Aspartate Amino Transferase 20 U/L (5-31); Bilirubin Total 0.3 mg/dL (0.0-1.0); Blood Urea Nitrogen 12 mg/dL (9-16); Carbon Dioxide 26 mmol/L (22-29); Chloride 109 mmol/L (96-108); Estimated Glomerular Filt Rate > 60; Glucose Random 88 mg/dL (60-115); Potassium 3.6 mmol/L (3.3-5.1); Sodium 140 mmol/L (135-145); Total Protein 6.8 g/dL (6.5-8.0)
[2023-03-28 17:04] LABS: TSH reflex Free T4 5.46 uIU/mL (0.32-4.0)
[2023-03-28 17:50] LABS: Free T4 (Free Thyroxine) 0.87 ng/dL (0.71-1.85)
== END 2023-03-28 13:51 | disposition home or self-care (01) ==
LOC: HO.HMGCLDS 13:50
PROVIDERS: PCP Nurse Practitioner Family; Visit Provider Nurse Practitioner Family
DX: R79.89 Other specified abnormal findings of blood chemistry (principal)
CPT/HCPCS: 36415; 80053; 81003; 84439; 84443; 85025

== ENCOUNTER 2023-05-16 11:27 | Outpatient (AMB) | payer OTHER, SELFPAY ==
[2023-05-16 11:31] VITALS: BP 100/62; PULSE 78; TEMP 36.4; O2SAT 100
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
== END 2023-05-16 12:15 | disposition home or self-care (01) ==
PROVIDERS: PCP Nurse Practitioner Family; Visit Provider Physician Assistant
DX: R39.9 Unspecified symptoms and signs involving the genitourinary system (principal); Z13.9 Encounter for screening, unspecified
CPT/HCPCS: 81003; 99213

== ENCOUNTER 2023-05-22 11:00 | Outpatient (REF) | payer OTHER, SELFPAY ==
[2023-05-22 13:31] LABS: MANUAL DIFF FLAG NO
[2023-05-22 13:55] LABS: Basophils Absolute Auto 0.1 X10*3/uL (0.0-0.2); Basophils Percent Auto 1.3 % (0-2); Eosinophils Absolute Auto 0.1 X10*3/uL (0.0-0.4); Eosinophils Percent Auto 2.5 % (0-4); Hematocrit 37.9 % (37.0-47.0); Hemoglobin 11.9 g/dl (12.0-16.0); Immature Retic Fraction 5.6 % (3.0-15.9); Lymphocytes Absolute Auto 1.4 X10*3/uL (1.2-4.9); Lymphocytes Percent Auto 34.1 % (20-40); Mean Corpuscular HGB Conc 31.4 g/dl (31.0-35.0); Mean Corpuscular Hemoglobin 30.7 pg (27.0-33.0); Mean Corpuscular Volume 97.9 fL (80.0-98.0); Mean Platelet Volume 10.2 fL (9.4-12.3); Monocytes Absolute Auto 0.2 X10*3/uL (0.1-1.2); Monocytes Percent Auto 5.6 % (2-11); Neutrophils Absolute Auto 2.2 x10*3/uL (2.0-8.3); Neutrophils Percent Auto 56.5 % (45-73); Platelet Count 195 X10*3/uL (160-400); Red Blood Count 3.87 X10*6/uL (4.20-5.50); Retic HGB Equivalent 34.6 pg (30.0-35.0); Reticulocytes Absolute 0.037 X10*6/uL (0.026-0.095)
[2023-05-22 14:40] LABS: Iron 69 mcg/dL (30-160); Percent Iron Saturation 29 % (15-50); Total Iron Binding Capacity 238 mcg/dL (228-428); Unsaturated Iron Binding 169 ug/dL
[2023-05-22 15:02] LABS: Ferritin 49 ng/mL (10-250)
[2023-05-22 18:42] LABS: Folate 14.4 ng/mL (> or = 4.0); Vitamin B12 485 pg/mL (200-900)
[2023-05-28 10:52] LABS: Hematocrit 35.5 % (35.0-45.0); Hemoglobin 11.9 g/dL (11.7-15.5); MCH 30.8 pg (27.0-33.0); RBC 3.86 Million/uL (3.80-5.10); RDW 12.3 % (11.0-15.0)
== END 2023-05-22 11:01 | disposition home or self-care (01) ==
LOC: HO.HMGCLDS 11:00
PROVIDERS: PCP Nurse Practitioner Family; Visit Provider Nurse Practitioner Family
DX: D64.9 Anemia, unspecified (principal)
CPT/HCPCS: 36415; 82607; 82728; 82746; 83020; 83540; 85014; 85018; 85025; 85041; 85045

== ENCOUNTER 2023-05-23 14:44 | Outpatient (AMB) | payer OTHER, SELFPAY ==
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
[2023-05-23 16:09] VITALS: BP 98/72; PULSE 87; TEMP 37; O2SAT 97
== END 2023-05-23 16:38 | disposition home or self-care (01) ==
PROVIDERS: PCP Nurse Practitioner Family; Visit Provider Internal Medicine
DX: I80.9 Phlebitis and thrombophlebitis of unspecified site (principal)
CPT/HCPCS: 99213

== ENCOUNTER 2023-06-04 11:08 | Outpatient (AMB) | payer OTHER, SELFPAY ==
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
[2023-06-04 11:11] VITALS: BP 90/60; PULSE 84; TEMP 35.5; O2SAT 97
== END 2023-06-04 12:28 | disposition home or self-care (01) ==
PROVIDERS: PCP Nurse Practitioner Family; Visit Provider Internal Medicine
DX: S53.402A Unspecified sprain of left elbow, initial encounter (principal)
CPT/HCPCS: 99214

== ENCOUNTER 2023-06-04 11:35 | Outpatient (REF) | payer OTHER, SELFPAY ==
--- NOTE | ~2023-06-04 | XR_ITS ---
EXAMINATION: XR ELBOW, LEFT CLINICAL INFORMATION: Elbow sprain COMPARISON: None available. TECHNIQUE: AP, lateral, and oblique views of the left elbow. FINDINGS: No fracture or joint effusion. Alignment is anatomic. Joint spaces are maintained. No abnormal soft tissue calcification. XR/XR elbow LT 2V IMPRESSION: No evidence of acute osseous abnormality.
== END 2023-06-04 11:36 | disposition home or self-care (01) ==
LOC: HO.HMGCX 11:35
PROVIDERS: PCP Nurse Practitioner Family; Visit Provider Internal Medicine
DX: S53.402A Unspecified sprain of left elbow, initial encounter (principal)
CPT/HCPCS: 73070

== ENCOUNTER 2023-06-28 14:19 | Outpatient (AMB) | payer OTHER, SELFPAY ==
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
[2023-06-28 14:31] VITALS: BP 110/70; PULSE 83; TEMP 36.3; O2SAT 98
== END 2023-06-28 15:47 | disposition home or self-care (01) ==
PROVIDERS: PCP Nurse Practitioner Family; Visit Provider Physician Assistant
DX: N39.0 Urinary tract infection, site not specified (principal)
CPT/HCPCS: 81003; 82948; 99213

== ENCOUNTER 2023-07-20 11:31 | Outpatient (REF) | payer OTHER, SELFPAY ==
[2023-07-20 19:27] LABS: CT PCR NOT DETECTED (Not Detect.); NG PCR NOT DETECTED (Not Detect.)
[2023-07-21 12:50] LABS: BV Int Neg Control Negative (Negative); BV Int Pos Control Positive (Positive)
[2023-07-25 07:28] LABS: HPV mRNA E6/E7 rflx Not Detected (Not Detected)
== END 2023-07-20 11:32 | disposition home or self-care (01) ==
LOC: HO.LNP 11:31
PROVIDERS: PCP Nurse Practitioner Family; Visit Provider Advanced Practice Midwife
DX: Z01.419 Encounter for gynecological examination (general) (routine) without abnormal findings (principal); F43.10 Post-traumatic stress disorder, unspecified; R33.9 Retention of urine, unspecified; Z20.2 Contact with and (suspected) exposure to infections with a predominantly sexual mode of transmission; Z79.899 Other long term (current) drug therapy
CPT/HCPCS: 0353U; 87480; 87510; 87624; 87660; 88142; 99386

== ENCOUNTER 2023-07-20 11:31 | Outpatient (AMB) | payer OTHER, SELFPAY ==
[2023-07-20 11:35] VITALS: BP 120/80; BMI 20.8
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
== END 2023-07-20 12:58 | disposition home or self-care (01) ==
PROVIDERS: PCP Nurse Practitioner Family; Visit Provider Advanced Practice Midwife
DX: Z01.419 Encounter for gynecological examination (general) (routine) without abnormal findings (principal); F43.10 Post-traumatic stress disorder, unspecified
CPT/HCPCS: 99386

== ENCOUNTER 2023-07-30 13:14 | Outpatient (AMB) | payer OTHER, SELFPAY ==
[2023-07-30 13:50] VITALS: BP 118/74; PULSE 80; TEMP 36.4; O2SAT 98; BMI 20.8
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
== END 2023-07-30 14:16 | disposition home or self-care (01) ==
PROVIDERS: PCP Nurse Practitioner Family; Visit Provider Physician Assistant
DX: J01.00 Acute maxillary sinusitis, unspecified (principal)
CPT/HCPCS: 99213

== ENCOUNTER 2023-07-30 14:27 | Outpatient (REF) | payer OTHER, SELFPAY ==
[2023-07-30 18:08] LABS: Influenza A PCR NEGATIVE (Negative); Influenza B PCR NEGATIVE (Negative); Resp Syncy Virus RNA Qual PCR NEGATIVE (Negative); SARS COV2 PCR INHOUSE NEGATIVE (Negative)
== END 2023-07-30 14:28 | disposition home or self-care (01) ==
LOC: HO.LAB 14:27
PROVIDERS: Visit Provider Physician Assistant
DX: B34.9 Viral infection, unspecified (principal); Z20.822 Contact with and (suspected) exposure to COVID-19
CPT/HCPCS: 0241U

== ENCOUNTER 2023-09-24 06:13 | Outpatient (REF) | payer OTHER, SELFPAY ==
[2023-09-24 11:33] LABS: MANUAL DIFF FLAG NO
[2023-09-24 11:35] LABS: Appearance Urine Clear; Color Urine Yellow; Glucose Urine UA Negative (Negative); Leukocyte Esterase Urine Small (1+) (Negative); Nitrite Urine Negative (Negative); Specific Gravity - Urine <= 1.005 (1.005-1.025); UMIC TRIGGER UACC YES; Urine Blood Negative (Negative); Urine Ketones Negative (Negative); Urine Protein Negative (Neg-Trace)
[2023-09-24 11:41] LABS: Basophils Absolute Auto 0.1 X10*3/uL (0.0-0.2); Eosinophils Absolute Auto 0.2 X10*3/uL (0.0-0.4); Eosinophils Percent Auto 2.3 % (0-4); Hematocrit 39.9 % (37.0-47.0); Imm Gran Abs Auto 0.02 X10*3/uL (0.00-0.03); Imm Gran Pct Auto 0.3 % (0.0-0.4); Lymphocytes Absolute Auto 1.5 X10*3/uL (1.2-4.9); Mean Corpuscular HGB Conc 30.1 g/dl (31.0-35.0); Mean Corpuscular Volume 99.8 fL (80.0-98.0); Mean Platelet Volume 9.6 fL (9.4-12.3); Monocytes Absolute Auto 0.4 X10*3/uL (0.1-1.2); Monocytes Percent Auto 5.6 % (2-11); Neutrophils Absolute Auto 4.8 x10*3/uL (2.0-8.3); Neutrophils Percent Auto 68.8 % (45-73); Platelet Count 329 X10*3/uL (160-400); Red Cell Distribution Width 13.9 % (11.0-16.0)
[2023-09-24 11:41] LABS: Bacteria Urine 1+ (None Seen); Hyaline Casts Urine 0-2 /LPF (0-2); RBC Urine 0-2 /HPF (0-2); UACC Culture Trigger YES
[2023-09-24 12:30] LABS: TSH reflex Free T4 3.29 uIU/mL (0.32-4.0)
[2023-09-24 12:33] LABS: Anion Gap 11 (12-20)
[2023-09-24 12:38] LABS: Alanine Aminotransferase 17 U/L (0-31); Alkaline Phosphatase 67 U/L (39-117); Aspartate Amino Transferase 16 U/L (5-31); Bilirubin Total 0.1 mg/dL (0.0-1.0); Blood Urea Nitrogen 13 mg/dL (9-16); Calcium 10.1 mg/dL (8.4-10.2); Carbon Dioxide 22 mmol/L (22-29); Chloride 110 mmol/L (96-108); Cholesterol 202 mg/dL (<200); Estimated Glomerular Filt Rate > 60; Glucose Fasting 75 mg/dL (60-99); HDL Cholesterol 74 mg/dL (>40); LDL Cholesterol Calculated 103 mg/dL (<100); Sodium 139 mmol/L (135-145); Total Protein 7.3 g/dL (6.5-8.0); Triglycerides 128 mg/dL (<150)
== END 2023-09-24 06:14 | disposition home or self-care (01) ==
LOC: HO.HMGCLDS 06:13
PROVIDERS: PCP Nurse Practitioner Family; Visit Provider Nurse Practitioner Family
DX: Z00.00 Encounter for general adult medical examination without abnormal findings (principal)
CPT/HCPCS: 36415; 80053; 80061; 81001; 84443; 85025; 87086

== ENCOUNTER 2023-12-10 08:23 | Outpatient (AMB) | payer OTHER, SELFPAY ==
[2023-12-10 08:51] VITALS: BP 110/72; PULSE 93; TEMP 36.3; O2SAT 96; BMI 25.7
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
== END 2023-12-10 09:46 | disposition home or self-care (01) ==
PROVIDERS: PCP Nurse Practitioner Family; Visit Provider Registered Nurse Emergency
DX: J06.9 Acute upper respiratory infection, unspecified (principal)
CPT/HCPCS: 87880; 99213

== ENCOUNTER 2023-12-10 09:24 | Outpatient (REF) | payer OTHER, SELFPAY ==
[2023-12-10 13:21] LABS: Influenza A PCR NEGATIVE (Negative); Influenza B PCR NEGATIVE (Negative); Resp Syncy Virus RNA Qual PCR NEGATIVE (Negative); SARS COV2 PCR INHOUSE NEGATIVE (Negative)
== END 2023-12-10 09:25 | disposition home or self-care (01) ==
LOC: HO.LAB 09:24
PROVIDERS: Visit Provider Registered Nurse Emergency
DX: J06.9 Acute upper respiratory infection, unspecified (principal); Z11.52 Encounter for screening for COVID-19; Z20.828 Contact with and (suspected) exposure to other viral communicable diseases
CPT/HCPCS: 0241U

== ENCOUNTER 2024-02-28 08:52 | Outpatient (AMB) | payer OTHER, SELFPAY ==
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
[2024-02-28 08:59] VITALS: BP 114/78; PULSE 78; O2SAT 99
== END 2024-02-28 09:27 | disposition home or self-care (01) ==
PROVIDERS: PCP Nurse Practitioner Family; Visit Provider Nurse Practitioner Family
DX: R14.0 Abdominal distension (gaseous) (principal); R44.0 Auditory hallucinations
CPT/HCPCS: 99213

== ENCOUNTER 2024-03-06 07:17 | Outpatient (REF) | payer OTHER, SELFPAY ==
[2024-03-06 10:17] LABS: MANUAL DIFF FLAG NO
[2024-03-06 10:37] LABS: Basophils Percent Auto 0.8 % (0-2); Eosinophils Absolute Auto 0.1 X10*3/uL (0.0-0.4); Eosinophils Percent Auto 1.9 % (0-4); Hematocrit 35.8 % (37.0-47.0); Hemoglobin 11.3 g/dl (12.0-16.0); Imm Gran Abs Auto 0.05 X10*3/uL (0.00-0.03); Lymphocytes Absolute Auto 1.4 X10*3/uL (1.2-4.9); Lymphocytes Percent Auto 26.5 % (20-40); Mean Corpuscular HGB Conc 31.6 g/dl (31.0-35.0); Mean Corpuscular Hemoglobin 30.5 pg (27.0-33.0); Mean Corpuscular Volume 96.5 fL (80.0-98.0); Mean Platelet Volume 9.8 fL (9.4-12.3); Monocytes Absolute Auto 0.3 X10*3/uL (0.1-1.2); Neutrophils Absolute Auto 3.3 x10*3/uL (2.0-8.3); Neutrophils Percent Auto 63.8 % (45-73); Platelet Count 257 X10*3/uL (160-400); Red Blood Count 3.71 X10*6/uL (4.20-5.50); White Blood Count 5.2 X10*3/uL (4.8-10.8)
[2024-03-06 11:08] LABS: Erythrocyte Sedimentation Rate 13 MM/HR (0-20)
[2024-03-06 11:32] LABS: Appearance Urine Clear; Color Urine Yellow; Glucose Urine UA Negative (Negative); Leukocyte Esterase Urine Negative (Negative); Nitrite Urine Negative (Negative); PH 7.5 (5.0-9.0); Specific Gravity - Urine <= 1.005 (1.005-1.025); UMIC TRIGGER UACC YES; Urine Blood Trace (Negative); Urine Ketones Negative (Negative); Urine Protein Negative (Neg-Trace)
[2024-03-06 11:35] LABS: Alanine Aminotransferase 15 U/L (0-31); Albumin Level 4.2 g/dL (3.5-5.0); Alkaline Phosphatase 57 U/L (39-117); Anion Gap 11 (12-20); Aspartate Amino Transferase 14 U/L (5-31); Bacteria Urine 1+ (None Seen); Bilirubin Total 0.1 mg/dL (0.0-1.0); Blood Urea Nitrogen 11 mg/dL (9-16); C Reactive Protein < 0.10 mg/dL (< or = 0.50); Calcium 9.4 mg/dL (8.4-10.2); Carbon Dioxide 23 mmol/L (22-29); Chloride 110 mmol/L (96-108); Estimated Glomerular Filt Rate > 60; Glucose Random 106 mg/dL (60-115); Hyaline Casts Urine 0-2 /LPF (0-2); RBC Urine 0-2 /HPF (0-2); Sodium 140 mmol/L (135-145); Squamous Epithelial Cell Urine 0-2 /HPF (0-2); TSH reflex Free T4 4.82 uIU/mL (0.32-4.0); Total Protein 7.1 g/dL (6.5-8.0); WBC Urine 0-5 /HPF (0-5)
[2024-03-06 12:06] LABS: Free T4 (Free Thyroxine) 0.68 ng/dL (0.71-1.85)
[2024-03-07 19:49] LABS: Transglutaminase IgA <1.0 U/mL
[2024-03-10 14:47] LABS: Endomysial IgA Antibody Negative (Negative)
== END 2024-03-06 07:18 | disposition home or self-care (01) ==
LOC: HO.HMGCLDS 07:17
PROVIDERS: PCP Nurse Practitioner Family; Visit Provider Nurse Practitioner Family
DX: R14.0 Abdominal distension (gaseous) (principal)
CPT/HCPCS: 36415; 80053; 81001; 81003; 84439; 84443; 85025; 85652; 86140; 86231; 86364

== ENCOUNTER 2024-04-18 14:07 | Outpatient (AMB) | payer OTHER, SELFPAY ==
[2024-04-18 14:17] VITALS: BP 120/76; PULSE 96; TEMP 36.6; O2SAT 99; BMI 29.7
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
== END 2024-04-18 16:38 | disposition home or self-care (01) ==
PROVIDERS: PCP Nurse Practitioner Family; Visit Provider Physician Assistant Medical
DX: M54.2 Cervicalgia (principal); M54.50 Low back pain, unspecified
CPT/HCPCS: 99213

== ENCOUNTER 2024-07-09 12:58 | Outpatient (AMB) | payer OTHER, SELFPAY ==
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
[2024-07-09 13:04] VITALS: BP 102/70; PULSE 84; O2SAT 98; BMI 26.3
== END 2024-07-09 14:43 | disposition home or self-care (01) ==
PROVIDERS: PCP Nurse Practitioner Family; Visit Provider Nurse Practitioner Family
DX: Z00.00 Encounter for general adult medical examination without abnormal findings (principal); R44.0 Auditory hallucinations; F32.9 Major depressive disorder, single episode, unspecified; F43.10 Post-traumatic stress disorder, unspecified; M54.50 Low back pain, unspecified
CPT/HCPCS: 99396

== ENCOUNTER 2024-07-11 13:00 | Outpatient (RCR) | payer OTHER, SELFPAY ==
--- NOTE | 2024-05-30 07:56 | MHC.PT.EP ---
[facility] [place] Office [place] Office [place] Office [address] [phone] F: [phone] F: [phone] F: [phone] F: [phone] Physical Therapy Plan of Care Date of Evaluation: 05/29/24 Date of Surgery: Diagnosis: low back pain Assessment: Patient is a 43 year old R handed female who presents with s/s consistent with low back pain. She does not currently work. Patient past medical history includes PTSD, depression, alcoholism. Current impairments include pain, posture, ROM, strength, activity tolerance and functional mobility. Functional limitations include decreased ability to stand, walk, squat, bend, sleep, and be active. Patient is motivated with good rehab potential. Skilled PT will address impairments and functional limitations in order to achieve goals. Frequency and Duration: The patient will be seen 2x/week for 5 weeks Short Term Goals: I with HEP - 2 weeks AROM full and pain free - 3 weeks Max pain 4/10 with daily activities - 3 weeks Assisted Goals: Able to sleep, bend, squat, walk and transfer pain free - 5 weeks 2/10 max pain with daily activities - 5 weeks Oswestry 10% or better - 5 weeks Treatment Plan: Modalities to reduce pain, spasms and effusion. Manual therapy to restore motion and function. Therapeutic exercise to improve strength and flexibility. Neuromuscular re-education for posture and balance. Therapeutic activities to return to functional activities of daily living. Electronically signed by: Miguel Garner, PT Please sign and return to therapist. Thank you for your referral.
--- NOTE | 2024-09-05 06:39 | MHC.PT.DC ---
[facility] [place] Office [place] Office [place] [facility] [address] Gary Cameron [address] [phone] F: [phone] F: [phone] F: [phone] F: [phone] Physical Therapy Discharge Report Diagnosis: low back pain Date of Surgery: Date of Evaluation: 05/29/24 Date of Discharge: 07/17/24 Treatments to Date: 6 Cancellations to Date: No Shows to Date: Discharge Status: Independent with HEP Patient Elected to Stop Discharge Summary: 07/11/24: pt progressing well. initiated increased standing ex today. she is getting x-rays next week and will wait until after to return. 06/30/24: pt progressing well with skilled PT. compliant with HEP. s/s have reduced in severity but are still present daily. 06/20/24: pt has been having a tough time with other medical issues but has been practicing HEP at home. added rows and ext without adverse reactions. reduced cues needed today. 06/10/24: pt progressing well with skilled PT. continue to progress as tolerated. HEP issued and reviewed. Patient is a 43 year old R handed female who presents with s/s consistent with low back pain. She does not currently work. Patient past medical history includes PTSD, depression, alcoholism. Current impairments include pain, posture, ROM, strength, activity tolerance and functional mobility. Functional limitations include decreased ability to stand, walk, squat, bend, sleep, and be active. Patient is motivated with good rehab potential. Skilled PT will address impairments and functional limitations in order to achieve goals. Electronically signed by: Miguel Garner, PT Please sign and return to therapist. Thank you for your referral.
== END 2024-09-05 06:39 | disposition home or self-care (01) ==
LOC: HO.PTCHIC 13:00
PROVIDERS: PCP Nurse Practitioner Family; Visit Provider Physician Assistant Medical
DX: M54.50 Low back pain, unspecified (principal)
CPT/HCPCS: 97110; 97163

== ENCOUNTER 2024-07-18 14:41 | Outpatient (REF) | payer OTHER, SELFPAY ==
--- NOTE | ~2024-07-18 | MM_ITS ---
EXAMINATION: MM SCREENING DIGITAL BREAST TOMOSYNTHESIS, BILATERAL CLINICAL INFORMATION: Screening. Asymptomatic. COMPARISON: Mammography: Comparison is made with available priors TECHNIQUE: Digital breast mammography with tomosynthesis is performed in both the craniocaudal and mediolateral oblique views along with computer-aided detection (CAD). FINDINGS: The breasts are heterogeneously dense, which may obscure small masses (ACR BI-RADS breast composition Category c). There are no significant masses, abnormal calcifications, or other abnormalities. MM/MM tomosynthesis screening BI IMPRESSION: No mammographic evidence of malignancy. ASSESSMENT: BI-RADS BI-RADS 1 - Negative RECOMMENDATION: Routine annual mammography screening. 1 year F/U This examination should not preclude the clinical evaluation of a suspicious palpable abnormality. This patient's information was entered into a reminder system with a target due date for their next mammogram. Electronically signed by: Juana Sorto DO 08/01/2024 08:55 AM EDT
== END 2024-07-18 14:42 | disposition home or self-care (01) ==
LOC: HO.MAMMO 14:41
PROVIDERS: PCP Nurse Practitioner Family; Visit Provider Nurse Practitioner Family
DX: Z12.31 Encounter for screening mammogram for malignant neoplasm of breast (principal)
CPT/HCPCS: 77063; 77067

== ENCOUNTER → 2024-07-18 14:45 | Outpatient (BNV) | payer OTHER, SELFPAY | PROVIDERS: PCP Nurse Practitioner Family; Visit Provider Internal Medicine | DX: Z12.31 Encounter for screening mammogram for malignant neoplasm of breast (principal) | CPT/HCPCS: 77063; 77067 ==

== ENCOUNTER 2024-07-22 13:18 | Outpatient (AMB) | payer OTHER, SELFPAY ==
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
[2024-07-22 13:39] VITALS: BP 118/70; BMI 28.0
== END 2024-07-22 14:50 | disposition home or self-care (01) ==
LOC: HO.HWSM 13:18
PROVIDERS: PCP Nurse Practitioner Family; Visit Provider Advanced Practice Midwife
DX: Z01.419 Encounter for gynecological examination (general) (routine) without abnormal findings (principal); R33.9 Retention of urine, unspecified
CPT/HCPCS: 99396

== ENCOUNTER → 2024-07-22 13:18 | Outpatient (BNVA) | payer OTHER, SELFPAY | PROVIDERS: PCP Nurse Practitioner Family; Visit Provider Advanced Practice Midwife | DX: Z01.419 Encounter for gynecological examination (general) (routine) without abnormal findings (principal); R33.9 Retention of urine, unspecified; F32.9 Major depressive disorder, single episode, unspecified; F43.10 Post-traumatic stress disorder, unspecified; Z91.410 Personal history of adult physical and sexual abuse | CPT/HCPCS: 99396 ==

== ENCOUNTER 2024-07-22 15:07 | Outpatient (REF) | payer OTHER, SELFPAY ==
--- NOTE | ~2024-07-22 | XR_ITS ---
EXAMINATION: XR LUMBOSACRAL SPINE CLINICAL INFORMATION: Low back pain. COMPARISON: None available. TECHNIQUE: Three views of the lumbosacral spine. FINDINGS: The vertebral bodies and posterior elements are normal. The disc spaces are preserved and the vertebral alignment is normal. The paraspinal soft tissues are normal. XR/XR lumbar spine 2-3V IMPRESSION: Normal lumbar spine radiographs. Electronically signed by: Thong Berman MD 10/01/2024 01:58 PM JESSICA
== END 2024-07-22 15:08 | disposition home or self-care (01) ==
LOC: HO.HMGCX 15:07
PROVIDERS: PCP Nurse Practitioner Family; Visit Provider Nurse Practitioner Family
DX: M54.50 Low back pain, unspecified (principal)
CPT/HCPCS: 72100

== ENCOUNTER → 2024-07-22 15:10 | Outpatient (BNV) | payer OTHER, SELFPAY | PROVIDERS: PCP Nurse Practitioner Family; Visit Provider Radiology Diagnostic Radiology | DX: M54.50 Low back pain, unspecified (principal) | CPT/HCPCS: 72100 ==

== ENCOUNTER 2024-07-23 07:08 | Outpatient (REF) | payer OTHER, SELFPAY ==
[2024-07-23 10:19] LABS: MANUAL DIFF FLAG NO
[2024-07-23 10:24] LABS: Basophils Absolute Auto 0.1 X10*3/uL (0.0-0.2); Basophils Percent Auto 1.2 % (0-2); Eosinophils Absolute Auto 0.2 X10*3/uL (0.0-0.4); Eosinophils Percent Auto 3.9 % (0-4); Hematocrit 37.1 % (37.0-47.0); Hemoglobin 11.5 g/dl (12.0-16.0); Imm Gran Abs Auto 0.02 X10*3/uL (0.00-0.03); Imm Gran Pct Auto 0.5 % (0.0-0.4); Lymphocytes Absolute Auto 1.5 X10*3/uL (1.2-4.9); Lymphocytes Percent Auto 37.2 % (20-40); Mean Corpuscular Hemoglobin 30.3 pg (27.0-33.0); Mean Corpuscular Volume 97.6 fL (80.0-98.0); Mean Platelet Volume 9.7 fL (9.4-12.3); Monocytes Absolute Auto 0.3 X10*3/uL (0.1-1.2); Monocytes Percent Auto 6.1 % (2-11); Neutrophils Absolute Auto 2.1 x10*3/uL (2.0-8.3); Neutrophils Percent Auto 51.1 % (45-73); Platelet Count 239 X10*3/uL (160-400); Red Cell Distribution Width 14.6 % (11.0-16.0); White Blood Count 4.1 X10*3/uL (4.8-10.8)
[2024-07-23 10:27] LABS: Appearance Urine Clear; Color Urine Yellow; Glucose Urine UA Negative (Negative); Leukocyte Esterase Urine Negative (Negative); Nitrite Urine Negative (Negative); Specific Gravity - Urine <= 1.005 (1.005-1.025); Urine Blood Negative (Negative); Urine Ketones Negative (Negative); Urine Protein Negative (Neg-Trace)
[2024-07-23 11:09] LABS: Alanine Aminotransferase 10 U/L (0-31); Albumin Level 4.1 g/dL (3.5-5.0); Alkaline Phosphatase 56 U/L (39-117); Anion Gap 7 (12-20); Aspartate Amino Transferase 12 U/L (5-31); Bilirubin Total 0.3 mg/dL (0.0-1.0); Blood Urea Nitrogen 9 mg/dL (9-16); Calcium 8.9 mg/dL (8.4-10.2); Carbon Dioxide 23 mmol/L (22-29); Chloride 111 mmol/L (96-108); Cholesterol 192 mg/dL (<200); Estimated Glomerular Filt Rate > 60; Glucose Fasting 102 mg/dL (60-99); HDL Cholesterol 63 mg/dL (>40); LDL Cholesterol Calculated 108 mg/dL (<100); Potassium 3.5 mmol/L (3.3-5.1); Sodium 137 mmol/L (135-145); TSH reflex Free T4 3.69 uIU/mL (0.32-4.0); Total Protein 6.9 g/dL (6.5-8.0); Triglycerides 105 mg/dL (<150)
== END 2024-07-23 07:09 | disposition home or self-care (01) ==
LOC: HO.HMGCLDS 07:08
PROVIDERS: PCP Nurse Practitioner Family; Visit Provider Nurse Practitioner Family
DX: Z00.01 Encounter for general adult medical examination with abnormal findings (principal); R44.0 Auditory hallucinations; F32.9 Major depressive disorder, single episode, unspecified; F43.10 Post-traumatic stress disorder, unspecified
CPT/HCPCS: 36415; 80053; 80061; 81003; 84443; 85025; 87086; 87147

== ENCOUNTER 2024-08-14 11:31 | Outpatient (AMB) | payer OTHER, SELFPAY ==
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
[2024-08-14 11:33] VITALS: BP 118/72; PULSE 98; O2SAT 99; BMI 29.3
== END 2024-08-14 12:19 | disposition home or self-care (01) ==
PROVIDERS: PCP Nurse Practitioner Family; Visit Provider Nurse Practitioner Family
DX: M54.2 Cervicalgia (principal)

== ENCOUNTER → 2024-08-14 11:31 | Outpatient (BNVA) | payer OTHER, SELFPAY | PROVIDERS: PCP Nurse Practitioner Family; Visit Provider Nurse Practitioner Family | DX: M54.2 Cervicalgia (principal) | CPT/HCPCS: 96127; 99212 ==

== ENCOUNTER 2024-10-09 14:20 | Outpatient (AMB) | payer OTHER, SELFPAY ==
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
[2024-10-09 14:23] VITALS: BP 112/70; PULSE 82; O2SAT 98; BMI 28.7
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
== END 2024-10-09 15:45 | disposition home or self-care (01) ==
PROVIDERS: PCP Nurse Practitioner Family; Visit Provider Nurse Practitioner Family
DX: R11.2 Nausea with vomiting, unspecified (principal)

== ENCOUNTER → 2024-10-09 14:20 | Outpatient (BNVA) | payer OTHER, SELFPAY | PROVIDERS: PCP Nurse Practitioner Family; Visit Provider Nurse Practitioner Family | DX: R11.2 Nausea with vomiting, unspecified (principal) | CPT/HCPCS: 99212 ==

== ENCOUNTER 2024-11-28 11:42 | Outpatient (REF) | payer OTHER, SELFPAY | END 2024-11-28 11:43 | disposition home or self-care (01) | LOC: HO.LAB 11:42 | PROVIDERS: PCP Nurse Practitioner Family; Visit Provider Physician Assistant | DX: N30.01 Acute cystitis with hematuria (principal) | CPT/HCPCS: 87086; 99212 ==

== ENCOUNTER 2024-12-26 13:16 | Outpatient (AMB) | payer OTHER, SELFPAY ==
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
[2024-12-26 13:29] VITALS: BP 120/82; PULSE 99; TEMP 36.6; O2SAT 98
== END 2024-12-26 14:08 | disposition home or self-care (01) ==
PROVIDERS: PCP Nurse Practitioner Family; Visit Provider Physician Assistant
DX: Z13.9 Encounter for screening, unspecified (principal); N30.01 Acute cystitis with hematuria

== ENCOUNTER 2024-12-26 13:16 | Outpatient (REF) | payer OTHER, SELFPAY | END 2024-12-26 13:17 | disposition home or self-care (01) | LOC: HO.LAB 13:16 | PROVIDERS: PCP Nurse Practitioner Family; Visit Provider Physician Assistant | DX: N30.01 Acute cystitis with hematuria (principal) | CPT/HCPCS: 81003; 87086; 99212 ==

== ENCOUNTER 2025-01-26 10:15 | Outpatient (REF) | payer OTHER, SELFPAY | END 2025-01-26 10:16 | disposition home or self-care (01) | LOC: HO.LAB 10:15 | PROVIDERS: PCP Nurse Practitioner Family | DX: N30.01 Acute cystitis with hematuria (principal) | CPT/HCPCS: 81003; 87086; 99212 ==

== ENCOUNTER 2025-01-26 10:15 | Outpatient (AMB) | payer OTHER, SELFPAY ==
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
[2025-01-26 11:43] VITALS: BP 114/68; PULSE 74; O2SAT 99
== END 2025-01-26 12:15 | disposition home or self-care (01) ==
PROVIDERS: PCP Nurse Practitioner Family; Visit Provider Physician Assistant
DX: Z13.9 Encounter for screening, unspecified (principal); N30.01 Acute cystitis with hematuria

== ENCOUNTER 2025-01-29 10:39 | Outpatient (REF) | payer OTHER, SELFPAY ==
[2025-01-29 17:00] LABS: Bacterial Vaginosis PCR NEGATIVE (Negative); Candida Group PCR DETECTED (Not Detect); Candida glab krusei PCR DETECTED (Not Detect); Trichomonas vaginalis PCR NOT DETECTED (Not Detect)
[2025-01-29 17:30] LABS: CT PCR NOT DETECTED (Not Detect.); NG PCR NOT DETECTED (Not Detect.)
== END 2025-01-29 10:40 | disposition home or self-care (01) ==
LOC: HO.LAB 10:39
PROVIDERS: Nurse Practitioner Family; PCP Nurse Practitioner Family
DX: N76.0 Acute vaginitis (principal); R10.30 Lower abdominal pain, unspecified
CPT/HCPCS: 81515; 87491; 87591; 99212

== ENCOUNTER 2025-01-29 10:39 | Outpatient (AMB) | payer OTHER, SELFPAY ==
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
[2025-01-29 10:52] VITALS: BP 116/64; PULSE 96; O2SAT 95
== END 2025-01-29 11:58 | disposition home or self-care (01) ==
PROVIDERS: PCP Nurse Practitioner Family; Visit Provider Nurse Practitioner Family
DX: R10.30 Lower abdominal pain, unspecified (principal); N76.0 Acute vaginitis

== ENCOUNTER 2025-01-31 12:31 | Outpatient (AMB) | payer OTHER, SELFPAY ==
[2025-01-31 13:07] VITALS: BP 90/60; PULSE 86; RESP 17; TEMP 36.5; O2SAT 97; BMI 26.8
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
== END 2025-01-31 13:46 | disposition home or self-care (01) ==
LOC: HO.HMCWIC 12:31
PROVIDERS: PCP Nurse Practitioner Family; Visit Provider Nurse Practitioner Family
DX: B37.31 Acute candidiasis of vulva and vagina (principal)

== ENCOUNTER → 2025-01-31 12:31 | Outpatient (BNVA) | payer OTHER, SELFPAY | PROVIDERS: PCP Nurse Practitioner Family; Visit Provider Nurse Practitioner Family | DX: B37.31 Acute candidiasis of vulva and vagina (principal) | CPT/HCPCS: 99212 ==

== ENCOUNTER 2025-04-22 11:42 | Outpatient (AMB) | payer OTHER, SELFPAY ==
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
[2025-04-22 11:56] VITALS: BP 100/62; PULSE 92; TEMP 36.4; O2SAT 99; BMI 27.1
--- OUTSIDE RECORDS SUMMARY | 2025-04-22 13:42 | XMS_ITS | Referral Summary ---
Author Organization [facility] Address [address] [place] [address] Care Team Providers Care Deck Supervisor Name Role Phone Anil Lynch Primary Care Provider [phone] Allergies No known active allergies Medications * This document contains information received from the source organization and may not represent a complete record from that organization. cyclobenzaprine (FLEXERIL) 10 mg tablet Take 10 mg by mouth 2 times a day as needed for muscle spasms. Active buPROPion SR (WELLBUTRIN SR) 150 mg tablet Take 150 mg by mouth once a day. Active clonazePAM (KlonoPIN) 2 mg tablet Take 2 mg by mouth every night. Active DULoxetine DR (CYMBALTA) 60 mg capsule Take 60 mg by mouth 2 times a day. Active levothyroxine (SYNTHROID, LEVOTHROID) 100 mcg tablet Take 100 mcg by mouth daily. Active potassium chloride (KLOR-CON) 10 mEq CR tablet Take 10 mEq by mouth once a day. Active simvastatin (ZOCOR) 40 mg tablet Take 40 mg by mouth nightly. Active topiramate (TOPAMAX) 100 mg tablet Take 100 mg by mouth once a day. Active zolpidem (AMBIEN) 10 mg tablet Take 10 mg by mouth every night. Active QUEtiapine (SEROquel) 100 mg tablet Take 1 tablet (100 mg total) by mouth 2 times a day. 60 tablet 06/21/2022 Active Active Problems Problem Noted Date Diagnosed Date Major depressive disorder without psychotic feat ures 06/21/2022 Psychotic disorder with delusions 06/16/2022 Resolved Problems Problem Noted Date Diagnosed Date Resolved Date Major depressive disorder wi thout psychotic features 06/13/2022 06/21/2022 Social History Tobacco Use Types Packs/Day Years Used Date Smoking Tobacco: Never Smokeless Tobacco: Never Alcohol Use Standard Drinks/Week Comments Not Currently 0 (1 standard drink = 0.6 oz pur e alcohol) Comments Unknown Sex and Gender Information Value Date Recorded Sex Assigned at Not on file Legal Sex Female 1:41 PM EDT Gender Identity Not on file Sexual Orientation Not on file Last Filed Vital Signs Vital Sign Reading Time Taken Comments Blood Pressure 101/67 06/21/2022 6:22 AM EDT Pulse 100 06/21/2022 6:22 AM EDT Temperature 36.2 C (97.2 F) 06/21/2022 6:22 AM EDT Respiratory Rate 16 06/21/2022 6:22 AM EDT Oxygen Saturation 100% 06/21/2022 6:22 AM EDT Inhaled Oxygen Concentration - - Weight 54 kg (119 lb) 06/13/2022 2:34 AM EDT Height 154.9 cm (5' 1 ) 06/13/2022 2:34 AM EDT Body Mass Index 22.48 06/13/2022 2:34 AM EDT Plan of Treatment Not on file [place] [address] [place] [address] MEDICAID Advance Directives Documents on File Type Date Recorded Patient Child Welfare Worker Expl anation Health Care Proxy 06/21/2022 8:38 PM Check list * Full Code (Latest Code Status on File) Date Activated Date Inactivated Comments 06/13/2022 12:13 AM 06/21/2022 3:49 PM Care Teams Deck Supervisor Relationship Specialty Start Date End Date Anli Lynch [address] [place] [address] PCP - General 06/12/22
== END 2025-04-22 12:31 | disposition home or self-care (01) ==
PROVIDERS: PCP Nurse Practitioner Family; Visit Provider Physician Assistant
DX: N30.01 Acute cystitis with hematuria (principal); Z13.9 Encounter for screening, unspecified

== ENCOUNTER 2025-04-22 11:42 | Outpatient (REF) | payer OTHER, SELFPAY | END 2025-04-22 11:43 | disposition home or self-care (01) | LOC: HO.LAB 11:42 | PROVIDERS: PCP Nurse Practitioner Family; Visit Provider Physician Assistant | DX: N30.01 Acute cystitis with hematuria (principal); Z13.9 Encounter for screening, unspecified | CPT/HCPCS: 81003; 87086; 87088; 87186; 99212 ==

== ENCOUNTER 2025-05-11 10:04 | Outpatient (AMB) | payer OTHER, SELFPAY ==
[2025-05-11 10:13] VITALS: BP 96/62; PULSE 82; TEMP 36.7; O2SAT 99; BMI 27.3
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
--- OUTSIDE RECORDS SUMMARY | 2025-05-11 10:45 | XMS_ITS | Referral Summary ---
Author Organization [facility] Address [address] [place] [address] Care Team Providers Care Project Geophysicist Name Role Phone Anil Lynch Primary Care Provider [phone]- [phone] Allergies No known active allergies Medications * [...] Plan of Treatment [place] [address] [place] [address] MEDICAID Advance Directives Documents on File Type Date Recorded Patient Assembler Expl anation Health Care Proxy 06/21/2022 8:38 PM Check list * Full Code (Latest Code Status on File) Date Activated Date Inactivated Comments 06/13/2022 12:13 AM 06/21/2022 3:49 PM Care Teams Project Geophysicist Relationship Specialty Start Date End Date Anil Lynch [address] [place] [address] PCP - General 06/12/22
== END 2025-05-11 11:41 | disposition home or self-care (01) ==
PROVIDERS: PCP Nurse Practitioner Family; Visit Provider Physician Assistant Medical
DX: R30.0 Dysuria (principal); N89.8 Other specified noninflammatory disorders of vagina; Z13.9 Encounter for screening, unspecified

== ENCOUNTER 2025-05-11 10:04 | Outpatient (REF) | payer OTHER, SELFPAY ==
[2025-05-11 14:48] LABS: Bacterial Vaginosis PCR NEGATIVE (Negative); Candida Group PCR DETECTED (Not Detect); Candida glab krusei PCR NOT DETECTED (Not Detect); Trichomonas vaginalis PCR NOT DETECTED (Not Detect)
[2025-05-11 15:18] LABS: CT PCR NOT DETECTED (Not Detect.); NG PCR NOT DETECTED (Not Detect.)
== END 2025-05-11 10:05 | disposition home or self-care (01) ==
LOC: HO.LAB 10:04
PROVIDERS: PCP Nurse Practitioner Family; Visit Provider Physician Assistant Medical
DX: N89.8 Other specified noninflammatory disorders of vagina (principal); N39.0 Urinary tract infection, site not specified; R30.0 Dysuria; Z13.9 Encounter for screening, unspecified
CPT/HCPCS: 81003; 81515; 87086; 87491; 87591; 99212

== ENCOUNTER 2025-06-01 13:37 | Outpatient (AMB) | payer OTHER, SELFPAY ==
[2025-06-01 13:39] VITALS: BP 104/68; PULSE 99; TEMP 36.9; O2SAT 98; BMI 28.0
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
--- OUTSIDE RECORDS SUMMARY | 2025-06-01 14:17 | XMS_ITS | Clinical Summary ---
Author Organization [facility] Address [address] [address] Phone Care Team Providers Care Range Master Name Role Phone Дмитрий Oliveira MD Primary Care Provider [phone] Allergies Active Allergy Reactions Criticality Noted Date Comments Amoxicillin 05/17/2019 Medications * This document contains information received from the source organization and may not represent a complete record from that organization. fluticasone propionate (FLONASE) 50 mcg/actuation nasal spray 1 spray by Nasal route daily. 9 Active clonazePAM (KLONOPIN) 1 MG tablet Take 1 tablet (1 mg total) by mouth 3 (three) times a day. 90 tablet 9 Active cyclobenzaprine (FLEXERIL) 10 MG tablet Take 1 tablet (10 mg total) by mouth 3 (three) times a day as needed. 90 tablet 9 Active DULoxetine (CYMBALTA) 60 MG capsule Take 1 capsule (60 mg total) by mouth nightly at bedtime. 30 capsule 9 Active ondansetron (ZOFRAN-ODT) 4 MG disintegrating tablet Take 1 tablet (4 mg total) by mouth every 8 (eight) hours as needed. 90 tablet 9 Active QUEtiapine (SEROQUEL) 200 MG tablet Take 1 tablet (200 mg total) by mouth 3 (three) times a day. 90 tablet 9 Active QUEtiapine (SEROQUEL) 100 MG tablet Take 1 tablet (100 mg total) by mouth 3 (three) times a day as needed (severe anxiety or agitation). 90 tablet 9 Active topiramate (TOPAMAX) 100 MG tablet Take 1 tablet (100 mg total) by mouth nightly at bedtime. 30 tablet 9 Active levothyroxine (SYNTHROID,LEVOTHR OID) 25 MCG tablet Take 1 tablet (25 mcg total) by mouth every morning. 30 tablet 9 Active melatonin 5 mg Tab Take 1 tablet (5 mg total) by mouth nightly at bedtime as needed (insomnia). 30 tablet 9 Active nicotine (NICODERM CQ) 14 mg/[address] 1 patch onto the skin daily. 30 patch 9 Active nicotine polacrilex (NICORETTE) [address] 1 each (2 mg total) inside cheek every 2 (two) hours as needed for smoking cessation (nicotine craving). 190 each 9 Active prazosin (MINIPRESS) 1 MG capsule Take 1 capsule (1 mg total) by mouth 3 (three) times a day. 90 capsule 9 Active vitamins with ferrous fumarate- folic acid 28 mg iron- 800 mcg Tab Take 1 tablet by mouth daily. 30 tablet 9 Active risperiDONE (RISPERDAL) 1 MG tablet Take 1 tablet (1 mg total) by mouth 2 (two) times a day. 60 tablet 9 Active LORazepam (ATIVAN) 1 MG tablet Take 1 tablet (1 mg total) by mouth every 6 (six) hours as needed for anxiety. 60 tablet 9 Active Active Problems Problem Noted Date Diagnosed Date Nicotine use disorder 05/17/2019 Assessment & Plan (05/17/2019 11:47 AM EDT): Nicotine patch and gum prescribed. Schizophrenia, paranoid, chronic with acute exac erbation 05/16/2019 Assessment & Plan (05/17/2019 11:43 AM EDT): Treatment per psychiatry recommendations Suicidal ideation Assessment & Plan (05/17/2019 11:43 AM EDT): Treatment per psychiatry recommendations PTSD (post-traumatic stress disorder) Assessment & Plan (05/17/2019 11:43 AM EDT): Treatment per psychiatry recommendations Constipation Assessment & Plan (05/17/2019 11:47 AM EDT): I will trial the patient on MiraLAX daily. If she begins to have loose stools please hold this medication. -Dulcolax also available if needed Insomnia Assessment & Plan (05/17/2019 11:47 AM EDT): Melatonin nightly if needed Chronic headaches Assessment & Plan (05/17/2019 11:45 AM EDT): Continue topiramate twice daily. Back pain Assessment & Plan (05/17/2019 11:45 AM EDT): History of back pain with prior cortisone injections. History of degenerative changes in the spine described. Significant family history of arthritis. -Tylenol 650 mg every 6 hours as needed mild pain, and Flexeril 10 mg every 8 hours as needed back spasm available as needed. -No imaging indicated at this time Anxiety Assessment & Plan (05/17/2019 11:43 AM EDT): Treatment per psychiatry recommendations Family History Medical History Relation Comments Arthritis Father Arthritis Mother No Known Problems Sister Relation Status Comments Father Alive Mother Alive Sister Social History Tobacco Use Types Packs/Day Years Used Date Smoking Tobacco: Some Days Cigarettes 0.3 10 Smokeless Tobacco: Never Tobacco Cessation:Ready to Q uit: Yes Alcohol Use Standard Drinks/Week Comments Not Currently 0 (1 standard drink = 0.6 oz pur e alcohol) Education Answer Date Recorded Are you interested in more education? Not on fernando e 03/03/2023 Are you concerned about learning? Not on file 03/03/2023 No 03/03/2023 No 03/03/2023 Digital Access Answer Date Recorded No 04/01/2023 No 04/01/2023 No 04/01/2023 Reliable internet access at home? Not on file 04/01/2023 Device with a working camera? 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 Not on file Not on file Not on file Last Filed Vital Signs Vital Sign Reading Time Taken Comments Blood Pressure 97/66 06/11/2019 8:47 AM EDT Pulse 91 06/11/2019 8:47 AM EDT Temperature 36.6 C (97.9 F) 06/11/2019 8:47 AM EDT Respiratory Rate 17 06/11/2019 8:47 AM EDT Oxygen Saturation 94% 06/11/2019 8:47 AM EDT Inhaled Oxygen Concentration - - Weight 60 kg (132 lb 3.2 oz) 06/04/2019 6:55 PM EDT Height 154.9 cm (5' 1 ) 05/16/2019 5:00 PM EDT Body Mass Index 24.98 05/16/2019 5:00 PM EDT Plan of Treatment Health Maintenance Due Date Last Done Comments DEPRESSION SCREENING 1992 SMOKING Hx and SMOKELESS TOBACCO SCREENING 1993 HEPATITIS C SCREENING 1998 HIV ONE-TIME SCREENING (18-6 5 YEARS) 1998 PAP SMEAR 2001 PNEUMOCOCCAL VACCINES (0-49 years) (2 of 2 - PCV) 01/21/2019 01/21/2018 TSH LEVEL 06/07/2020 06/07/2019 MAMMOGRAM 2020 COVID-19 VACCINE (2 - 2023-2 5 season) 2024 03/04/2021 Adult Td,Tdap Booster 07/06/2027 07/06/2017 , 11/05/2011 HEPATITIS A VACCINES Aged Out No long er eligible based on patient's age to complete this topic HIB VACCINES Aged Out No longer eligi ble based on patient's age to complete this topic MENINGOCOCCAL VACCINES (ACWY) Aged Out No longer eligible based on patient's age to complete this topic MENINGOCOCCAL VACCINES (B) Aged Out N o longer eligible based on patient's age to complete this topic Medical Devices Not on file Procedures Procedure Name Priority Date/Time Associated Diagnosis Comments TSH Routine 06/07/2019 6:03 AM EDT from Last 3 Months or Most Recently Relevant to Health Maintenance Results * (ABNORMAL) TSH (06/07/2019 6:03 AM EDT) TSH 14.66(H) 0.27 - 4.20 uIU/mL [facility] Blood 06/07/2019 6:03 AM EDT 06/07/2019 6:31 AM EDT Courtney Machado MD LAB BLOOD ORDERABLES Fi nal Result [facility] [address] [place] [address] from Last 3 Months or Most Recently Relevant to Health Maintenance Insurance ACO ACO ACO [employer]CO [employer] ACO [facility] ACO [facility] ACO [facility] ACO Advance Directives For more information, please contact: [phone] (9AM - 5PM [facility], Sunday-Sunday) * Full Code (Presumed) (Latest Code Status on File) Date Activated Date Inactivated Comments 05/16/2019 3:29 PM 06/11/2019 1:28 PM Care Teams Range Master Relationship Specialty Start Date End Date Дмитрий Oliveira MD [address] [facility] [facility] [address] [place] [address] [email or web address] PCP - General 11/28/13 Additional Source Comments The information contained in this document represents components of the legal health record. It is not the complete legal health record.[facility]
--- OUTSIDE RECORDS SUMMARY | 2025-06-01 14:17 | XMS_ITS | Referral Summary ---
Author Organization [facility] Address [address] [place] [address] Care Team Providers Care Sisal Operator Name Role Phone Anil Lynch Primary Care Provider [phone] Allergies No known active allergies Medications * [...] Plan of Treatment [place] [address] [place] [address] MEDICAID Advance Directives Documents on File Type Date Recorded Patient Pattern Ruler Expl anation Health Care Proxy 06/21/2022 8:38 PM Check list * Full Code (Latest Code Status on File) Date Activated Date Inactivated Comments 06/13/2022 12:13 AM 06/21/2022 3:49 PM Care Teams Sisal Operator Relationship Specialty Start Date End Date Anil Lynch [address] [place] [address] PCP - General 06/12/22
== END 2025-06-01 14:35 | disposition home or self-care (01) ==
LOC: HO.HMCC 13:37
PROVIDERS: PCP Nurse Practitioner Family; Visit Provider Nurse Practitioner Family
DX: R30.0 Dysuria (principal); N76.0 Acute vaginitis

== ENCOUNTER 2025-06-01 13:37 | Outpatient (REF) | payer OTHER, SELFPAY ==
[2025-06-02 09:23] LABS: Bacterial Vaginosis PCR NEGATIVE (Negative); Candida Group PCR NOT DETECTED (Not Detect); Candida glab krusei PCR NOT DETECTED (Not Detect); Trichomonas vaginalis PCR NOT DETECTED (Not Detect)
== END 2025-06-01 13:38 | disposition home or self-care (01) ==
LOC: HO.LAB 13:37
PROVIDERS: PCP Nurse Practitioner Family; Visit Provider Nurse Practitioner Family
DX: N76.0 Acute vaginitis (principal); R30.0 Dysuria; Z87.440 Personal history of urinary (tract) infections
CPT/HCPCS: 81515; 96127; 99212

== ENCOUNTER 2025-06-18 10:35 | Outpatient (AMB) | payer OTHER, SELFPAY ==
[2025-06-18 11:08] VITALS: BP 90/66; PULSE 90; TEMP 36.6; O2SAT 100; BMI 26.8
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
--- OUTSIDE RECORDS SUMMARY | 2025-06-18 11:39 | XMS_ITS | Clinical Summary ---
Author Organization [facility] Address [address] [address] Phone Care Team Providers Care Landscape Designer Name Role Phone Дмитрий Oliveira MD Primary Care Provider [phone] Allergies Active Allergy Reactions Criticality Noted Date [...] EDT) TSH 14.66(H) 0.27 - 4.20 uIU/mL [facility] Blood 06/07/2019 6:03 AM EDT 06/07/2019 6:31 AM EDT Courtney Machado MD LAB BLOOD ORDERABLES Fi nal Result [facility] [address] [place] [address] from Last 3 Months or Most Recently Relevant to Health Maintenance Insurance ACO ACO ACO ACO [employer]IANCE ACO [facility] ACO [facility] ACO [facility] ACO Advance Directives For more information, please contact: [phone] (9AM - 5PM [facility], Sunday-Sunday) * Full Code (Presumed) (Latest Code Status on File) Date Activated Date Inactivated Comments 05/16/2019 3:29 PM 06/11/2019 1:28 PM Care Teams Landscape Designer Relationship Specialty Start Date End Date Дмитрий Oliveira MD [address] [facility] [address] [place] [address] [email or web address] PCP - General 11/28/13 Additional Source Comments The information contained in this document represents components of the legal health record. It is not the complete legal health record.[facility]
--- OUTSIDE RECORDS SUMMARY | 2025-06-18 11:39 | XMS_ITS | Clinical Summary ---
Author Organization [facility] Address [address] [place] [address] Care Team Providers Care Bicycle Courier Name Role Phone Anil Lynch Primary Care Provider +1- [phone] Allergies No known active allergies Medications * [...] 06/13/2022 2:34 AM EDT Plan of Treatment Health Maintenance Due Date Last Done Comments Cervical Cancer Screening 1980 HIV Screening 1980 HPV and Pap Smear 1980 Pap Smear 1980 Varicella Vaccines (1 of 2 - 13+ 2-dose series) 1993 Hepatitis B Vaccines (1 of 3 - 19+ 3-dose series) 1999 COVID-19 Vaccine ( season) 2024 12/14/2021, 04/01/2021, 03/04/2021 Alcohol/Substance Use Screening 11/05/2024 Influenza Vaccine (#1) 2025 , 08/06/2019, 09/11/2018, Additional history exists DTaP,Tdap,and Td Vaccines (3 - Td or Tdap) 07/06/2027 07/06/2017, 11/05/2011 RSV Vaccine (60+ years old and patients) (1 - 1-dose 75+ series) 2055 Pneumococcal Vaccine: Pediatric (0-5 Years) and At-Risk Patients (6-50 Years) Aged Out 01/21/2018 No longer eligible based on patient's age to complete this topic Insurance [facility] MEDICAID [facility] MEDICAID Advance Directives Documents on File Type Date Recorded Patient Industrial Technology Education Teacher Expl [facility] Care Proxy 06/21/2022 8:38 PM Check list * Full Code (Latest Code Status on File) Date Activated Date Inactivated Comments 06/13/2022 12:13 AM 06/21/2022 3:49 PM Care Teams Bicycle Courier Relationship Specialty Start Date End Date Anil Lynch [address] [place] [address] PCP - General 06/12/22
== END 2025-06-18 11:41 | disposition home or self-care (01) ==
PROVIDERS: PCP Nurse Practitioner Family; Visit Provider Nurse Practitioner Family
DX: Z13.9 Encounter for screening, unspecified (principal); R39.9 Unspecified symptoms and signs involving the genitourinary system

== ENCOUNTER → 2025-06-18 10:35 | Outpatient (BNVA) | payer OTHER, SELFPAY | PROVIDERS: PCP Nurse Practitioner Family; Visit Provider Nurse Practitioner Family | DX: Z87.440 Personal history of urinary (tract) infections (principal) | CPT/HCPCS: 81003; 99212 ==

== ENCOUNTER 2025-07-29 14:17 | Outpatient (REF) | payer OTHER, SELFPAY ==
--- NOTE | ~2025-07-29 | US_ITS ---
EXAMINATION: US RETROPERITONEAL COMPLETE (RENAL) CLINICAL INFORMATION: Dysuria. COMPARISON: None available. TECHNIQUE: Real-time imaging of the kidneys and bladder. FINDINGS: RIGHT KIDNEY: 11 x 4 x 5 cm (SAG x AP x TRV). Volume: 110 cc. Normal echotexture. Normal renal cortical thickness. Mild pelvicalyceal ectasia. No dilatation of the proximal ureter. No gross solid or cystic lesion. LEFT KIDNEY: 11 x 5 x 5 cm (SAG x AP x TRV). Volume: 131 cc . Normal echotexture. Normal renal cortical thickness. No hydronephrosis. No gross solid or cystic lesion. BLADDER: Fluid-filled. The ureteral jets are demonstrated only on the right side. Prevoid bladder volume is 965 mL. Postvoid bladder volume is 104 mL. Probable 1.4 cm splenule. US/US retroperitoneal comp IMPRESSION: 104 cc of retained urine in a post void image. Mild pelvicalyceal ectasia, right kidney.. Electronically signed by: Sixto Dodson MD 07/29/2025 03:22 PM EDT
--- OUTSIDE RECORDS SUMMARY | 2025-07-29 17:02 | XMS_ITS | Clinical Summary ---
Author Organization [facility] Address [address] [address] Phone Care Team Providers Care Sanitary Engineer Name Role Phone Дмитрий Oliveira MD Primary Care Provider Allergies Active Allergy Reactions Criticality Noted Date [...] Health Maintenance Due Date Last Done Comments LIPID PANEL 1980 DEPRESSION SCREENING 1992 SMOKING Hx and SMOKELESS TOBACCO SCREENING 1993 HEPATITIS C SCREENING 1998 HIV ONE-TIME SCREENING (18-65 YEARS) 1998 PAP SMEAR 2001 PNEUMOCOCCAL VACCINES (0-49 years) (2 of 2 - PCV) 01/21/2019 01/21/2018 TSH LEVEL 06/07/2020 06/07/2019 MAMMOGRAM 2020 INFLUENZA VACCINE (#1) 2025 0, 08/06/2019, 09/11/2018, Additional history exists COLOGUARD 2025 COLONOSCOPY 2025 COLORECTAL CANCER SCREENING 2025 FIT TEST 2025 FOBT 2025 SIGMOIDOSCOPY 2025 VIRTUAL COLONOSCOPY 2025 COVID-19 VACCINE ( season) 2025 03/04/2021 Adult Td,Tdap Booster 07/06/2027 07/06/2017, 012 HEPATITIS A VACCINES Aged Out No long [...] EDT) TSH 14.66(H) 0.27 - 4.20 uIU/mL [facility] Blood 06/07/2019 6:03 AM EDT 06/07/2019 6:31 AM EDT Courtney Machado MD LAB BLOOD ORDERABLES Fi nal Result [facility] [address] [place] [address] from Last 3 Months or Most Recently Relevant to Health Maintenance Insurance [facility] [place] [address] [place] [address] [place] [address] [place] [address] ACO [facility] ACO ACO [employer] Advance Directives For more information, please contact: [phone] (9AM - 5PM [place], Sunday-[place]) * Full Code (Presumed) (Latest Code Status on File) Date Activated Date Inactivated Comments 05/16/2019 3:29 PM 06/11/2019 1:28 PM Care Teams Sanitary Engineer Relationship Specialty Start Date End Date Дмитрий Oliveira MD [address] [facility] [address] [place] [phone] [email or web address] PCP - General 11/28/13 Additional Source Comments The information contained in this document represents components of the legal health record. It is not the complete legal health record.[facility]
--- OUTSIDE RECORDS SUMMARY | 2025-07-29 17:02 | XMS_ITS | Clinical Summary ---
Author Organization [facility] Address [address] [place] [address] Care Team Providers Care American Sign Language Teacher Name Role Phone Anil Lynch Primary Care Provider [phone]- [phone] Allergies No known active allergies Medications * [...] Health Maintenance Due Date Last Done Comments Cologuard 1980 Colon Cancer Screening 1980 Colonoscopy 1980 FOBT / Fit Test 1980 HIV Screening 1980 Sigmoidoscopy 1980 Varicella Vaccines (1 of 2 - 13+ 2-dose series) 1993 Hepatitis B Vaccines (1 of 3 - 19+ 3-dose series) 1999 Alcohol/Substance Use Screening 11/05/2024 COVID-19 Vaccine ( season) 2025 12/14/2021, 04/01/2021, 03/04/2021 Influenza Vaccine (#1) 2025 , 08/06/2019, 09/11/2018, Additional history exists DTaP,Tdap,and Td Vaccines (3 - Td or Tdap) 07/06/2027 07/06/2017, 11/05/2011 RSV Vaccine (60+ years old and patients) (1 - 1-dose 75+ series) 2055 Pneumococcal Vaccine: Pediatric (0-5 Years) and At-Risk Patients (6-50 Years) Aged Out 01/21/2018 No longer eligible based on patient's age to complete this topic Insurance [facility] [place] [address] [address] MEDICAID Advance Directives Documents on File Type Date Recorded Patient Russian Language Professor Expl anation Health Care Proxy 06/21/2022 8:38 PM Check list * Full Code (Latest Code Status on File) Date Activated Date Inactivated Comments 06/13/2022 12:13 AM 06/21/2022 3:49 PM Care Teams American Sign Language Teacher Relationship Specialty Start Date End Date Anil Lynch [address] [place] [address] PCP - General 06/12/22
== END 2025-07-29 14:18 | disposition home or self-care (01) ==
LOC: HO.HMGCX 14:17
PROVIDERS: PCP Nurse Practitioner Family; Visit Provider Nurse Practitioner Family
DX: R30.0 Dysuria (principal)
CPT/HCPCS: 76770

== ENCOUNTER → 2025-07-29 14:18 | Outpatient (BNV) | payer OTHER, SELFPAY | PROVIDERS: PCP Nurse Practitioner Family; Visit Provider Radiology Diagnostic Radiology | DX: R30.0 Dysuria (principal) | CPT/HCPCS: 76770 ==

== ENCOUNTER 2025-07-30 13:05 | Outpatient (AMB) | payer OTHER, SELFPAY ==
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
--- OUTSIDE RECORDS SUMMARY | 2025-07-30 17:49 | XMS_ITS | Clinical Summary ---
Author Organization [facility] Address [address] [place] [address] Care Team Providers Care Maintenance Data Analyst Name Role Phone Anil Lynch Primary Care Provider [phone]- [phone] Allergies No known active allergies Medications * [...] patient's age to complete this topic Insurance [facility] [place] [address] [address] [place] [address] MEDICAID Advance Directives Documents on File Type Date Recorded Patient Sheet Manager Expl anation Health Care Proxy 06/21/2022 8:38 PM Check list * Full Code (Latest Code Status on File) Date Activated Date Inactivated Comments 06/13/2022 12:13 AM 06/21/2022 3:49 PM Care Teams Maintenance Data Analyst Relationship Specialty Start Date End Date Anil Lynch [address] [place] [address] PCP - General 06/12/22
--- OUTSIDE RECORDS SUMMARY | 2025-07-30 17:49 | XMS_ITS | Clinical Summary ---
Author Organization [facility] Address [address] [address] Phone Care Team Providers Care Logistics Planning Engineer Name Role Phone Дмитрий Oliveira MD Primary Care Provider [phone] Allergies Active Allergy Reactions Criticality Noted Date [...] EDT) TSH 14.66(H) 0.27 - 4.20 uIU/mL [facility] Blood 06/07/2019 6:03 AM EDT 06/07/2019 6:31 AM EDT Courtney Machado MD LAB BLOOD ORDERABLES Fi nal Result [facility] [address] [place] [address] from Last 3 Months or Most Recently Relevant to Health Maintenance Insurance [facility] [place] [address] [place] [address] [place] [address] [place] [address] ACO [facility] ACO ACO ACO A[employer] Advance Directives For more information, please contact: [phone] (9AM - 5PM [place], Sunday-Sunday) * Full Code (Presumed) (Latest Code Status on File) Date Activated Date Inactivated Comments 05/16/2019 3:29 PM 06/11/2019 1:28 PM Care Teams Logistics Planning Engineer Relationship Specialty Start Date End Date Дмитрий Oliveira MD [address] [facility] [address] [place] [phone] [email or web address] PCP - General 11/28/13 Additional Source Comments The information contained in this document represents components of the legal health record. It is not the complete legal health record.[facility]
== END 2025-07-30 14:00 | disposition home or self-care (01) ==
LOC: HO.HUSH 13:05
PROVIDERS: PCP Nurse Practitioner Family; Visit Provider Nurse Practitioner Family
DX: Z13.9 Encounter for screening, unspecified (principal)

== ENCOUNTER → 2025-07-30 13:05 | Outpatient (BNVA) | payer OTHER, SELFPAY | PROVIDERS: PCP Nurse Practitioner Family; Visit Provider Nurse Practitioner Family | DX: R30.0 Dysuria (principal); R39.89 Other symptoms and signs involving the genitourinary system | CPT/HCPCS: 51798; 81003; 99202 ==

== ENCOUNTER 2025-09-17 08:22 | Outpatient (REF) | payer OTHER, SELFPAY ==
--- OUTSIDE RECORDS SUMMARY | 2025-09-17 08:42 | XMS_ITS | Clinical Summary ---
Author Organization [facility] Address [address] [place] [address] Care Team Providers Care Job Counselor Name Role Phone Anil Lynch Primary Care Provider [phone]- [phone] Allergies No known active allergies Medications * [...] Last Done Comments Cervical Cancer Screening 1980 Cologuard 1980 Colon Cancer Screening 1980 Colonoscopy 1980 FOBT / Fit Test 1980 HIV Screening 1980 HPV and Pap Smear 1980 Pap Smear 1980 Sigmoidoscopy 1980 Varicella Vaccines (1 of 2 - 13+ 2-dose series) 1993 Hepatitis B Vaccines (1 of 3 - 19+ 3-dose series) 1999 Mammogram 2020 Alcohol/Substance Use Screening 11/05/2024 COVID-19 Vaccine ( season) 2025 12/14/2021, 04/01/2021, 03/04/2021 Influenza Vaccine (#1) 2025 , 08/06/2019, 09/11/2018, Additional history exists DTaP,Tdap,and Td Vaccines (3 - Td or Tdap) 07/06/2027 07/06/2017, 11/05/2011 Pneumococcal Vaccine: Pediatric (0-5 Years) and At-Risk Patients (6-50 Years) Aged Out 01/21/2018 No longer eligible based on patient's age to complete this topic Insurance [facility] MEDICA[place] [address] MEDICAID Advance Directives Documents on File Type Date Recorded Patient Manager Call Center Expl anation Health Care Proxy 06/21/2022 8:38 PM Check list * Full Code (Latest Code Status on File) Date Activated Date Inactivated Comments 06/13/2022 12:13 AM 06/21/2022 3:49 PM Care Teams Job Counselor Relationship Specialty Start Date End Date Anil Lynch [address] [place] [address] PCP - General 06/12/22
--- OUTSIDE RECORDS SUMMARY | 2025-09-17 08:42 | XMS_ITS | Clinical Summary ---
Author Organization [facility] Address [address] [address] Phone Care Team Providers Care Director Outpatient Services Name Role Phone Дмитрий Oliveira MD Primary [...] on patient's age to complete this topic IPV VACCINES Aged Out No longer eligi ble based on patient's age to complete this topic MENINGOCOCCAL VACCINES (ACWY) Aged Out No longer eligible based on patient's age to complete this topic MENINGOCOCCAL VACCINES (B) Aged Out N o longer eligible based on patient's age to complete this topic Medical Devices Not on file Procedures Procedure Name Priority Date/Time Associated Diagnosis Comments THYROID STIMULATING HORMONE (TSH) Routine 06/07/2019 6:03 AM EDT from Last 3 Months or Most Recently Relevant to Health Maintenance Results * (ABNORMAL) TSH (06/07/2019 6:03 AM EDT) TSH 14.66(H) 0.27 - 4.20 uIU/mL [facility] Blood 06/07/2019 6:03 AM EDT 06/07/2019 6:31 AM EDT Courtney Machado MD LAB BLOOD BKR ORDERABLE S Final Result [address] [address] from Last 3 Months or Most Recently Relevant to Health Maintenance Insurance [place] [address] [place] [address] [place] [address] [place] [address] [place] [address] [place] [address] [place] [address] [place] [address] [place] [place] [address] [place] [address] [employer] Advance Directives For more information, please contact: [phone] (9AM - 5PM [facility], Sunday-Sunday) * Full Code (Presumed) (Latest Code Status on File) Date Activated Date Inactivated Comments 05/16/2019 3:29 PM 06/11/2019 1:28 PM Care Teams Director Outpatient Services Relationship Specialty Start Date End Date Дмитрий Oliveira MD [address] [place] [phone] [email or web address] PCP - General 11/28/13 Additional Source Comments The information contained in this document represents components of the legal health record. It is not the complete legal health record.[facility]
[2025-09-17 10:25] LABS: MANUAL DIFF FLAG NO
[2025-09-17 10:46] LABS: Hematocrit 38.8 % (37.0-47.0); Hemoglobin 11.9 g/dl (12.0-16.0); Imm Gran Abs Auto 0.02 X10*3/uL (0.00-0.03); Imm Gran Pct Auto 0.3 % (0.0-0.4); Lymphocytes Absolute Auto 2.0 X10*3/uL (1.2-4.9); Mean Corpuscular HGB Conc 30.7 g/dl (31.0-35.0); Mean Corpuscular Hemoglobin 29.7 pg (27.0-33.0); Mean Corpuscular Volume 96.8 fL (80.0-98.0); NRBC Abs Auto 0.000 X10*3/uL (0.0-0.012); NRBC Pct Auto 0.0 /100WBC (0.0-0.2); Platelet Count 250 X10*3/uL (160-400); Red Blood Count 4.01 X10*6/uL (4.20-5.50); White Blood Count 6.0 X10*3/uL (4.8-10.8)
[2025-09-17 11:59] LABS: Alanine Aminotransferase 18 U/L (0-31); Albumin Level 4.3 g/dL (3.5-5.0); Alkaline Phosphatase 69 U/L (39-117); Anion Gap 9 (12-20); Aspartate Amino Transferase 23 U/L (5-31); Blood Urea Nitrogen 16 mg/dL (9-16); Calcium 8.7 mg/dL (8.4-10.2); Carbon Dioxide 24 mmol/L (22-29); Chloride 112 mmol/L (96-108); Cholesterol 185 mg/dL (<200); Estimated Glomerular Filt Rate > 60; HDL Cholesterol 61 mg/dL (>40); Potassium 3.7 mmol/L (3.3-5.1); Sodium 141 mmol/L (135-145); Total Protein 6.9 g/dL (6.5-8.0); Triglycerides 94 mg/dL (<150)
[2025-09-17 13:04] LABS: Free T4 (Free Thyroxine) 0.84 ng/dL (0.71-1.85)
== END 2025-09-17 08:23 | disposition home or self-care (01) ==
LOC: HO.HMGCLDS 08:22
PROVIDERS: PCP Nurse Practitioner Family; Visit Provider Nurse Practitioner Family
DX: R79.89 Other specified abnormal findings of blood chemistry (principal); E66.9 Obesity, unspecified
CPT/HCPCS: 36415; 80053; 80061; 84439; 84443; 85025

== ENCOUNTER 2025-09-18 11:45 | Outpatient (REF) | payer OTHER, SELFPAY ==
[2025-09-18 16:13] LABS: Appearance Urine Clear; Glucose Urine UA Negative (Negative); PH 6.5 (5.0-9.0); Specific Gravity - Urine <= 1.005 (1.005-1.025); UMIC TRIGGER UACC YES
== END 2025-09-18 11:46 | disposition home or self-care (01) ==
LOC: HO.HMGCLNP 11:45
PROVIDERS: PCP Nurse Practitioner Family; Visit Provider Nurse Practitioner Family
DX: R79.89 Other specified abnormal findings of blood chemistry (principal); E66.9 Obesity, unspecified
CPT/HCPCS: 81001

== ENCOUNTER 2025-09-23 15:22 | Outpatient (AMB) | payer OTHER, SELFPAY ==
[2025-09-23 15:42] VITALS: BP 110/72; PULSE 94; RESP 16; TEMP 37.1; O2SAT 98; BMI 28.7
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
--- OUTSIDE RECORDS SUMMARY | 2025-09-24 03:59 | XMS_ITS | Clinical Summary ---
Author Organization [facility] Address [address] [address] Phone Care Team Providers Care Nicker And Breaker Name Role Phone Дмитрий Oliveira MD Primary [...] EDT) TSH 14.66(H) 0.27 - 4.20 uIU/mL [facility] Blood 06/07/2019 6:03 AM EDT 06/07/2019 6:31 AM EDT Courtney Machado MD LAB BLOOD BKR ORDERABLE S Final Result [address] [address] from Last 3 Months or Most Recently Relevant to Health Maintenance Insurance [employer] [place] [address] [address] [place] [address] [place] [address] [place] [place] [address] [place] [place] [place] [address] [place] [address] [place] [address] Advance Directives For more information, please contact: [phone] (9AM - 5PM [facility], Sunday-Sunday) * Full Code (Presumed) (Latest Code Status on File) Date Activated Date Inactivated Comments 05/16/2019 3:29 PM 06/11/2019 1:28 PM Care Teams Nicker And Breaker Relationship Specialty Start Date End Date Дмитрий Oliveira MD [address] [place] [address] [phone] [email or web address] PCP - General 11/28/13 Additional Source Comments The information contained in this document represents components of the legal health record. It is not the complete legal health record.[facility]
--- OUTSIDE RECORDS SUMMARY | 2025-09-24 03:59 | XMS_ITS | Clinical Summary ---
Author Organization [facility] Address [address] [place] [address] Care Team Providers Care Frame Stripper And Crusher Name Role Phone Anil Lynch Primary Care Provider [phone] Allergies No known active allergies Medications * [...] 1999 Mammogram 2020 Alcohol/Substance Use Screening 11/05/2024 Influenza Vaccine (#1) 2025 , 08/06/2019, 09/11/2018, Additional history exists COVID-19 Vaccine ( season) 2025 12/14/2021, 04/01/2021, 03/04/2021 DTaP,Tdap,and Td Vaccines (3 - Td or Tdap) 07/06/2027 07/06/2017, 11/05/2011 Pneumococcal Vaccine: Pediatric (0-5 Years) and At-Risk Patients (6-50 Years) Aged Out 01/21/2018 No longer eligible based on patient's age to complete this topic Insurance [facility] [place] [address] [place] [address] MEDICAID Advance Directives Documents on File Type Date Recorded Patient Design Lead Expl anation Health Care Proxy 06/21/2022 8:38 PM Check list * Full Code (Latest Code Status on File) Date Activated Date Inactivated Comments 06/13/2022 12:13 AM 06/21/2022 3:49 PM Care Teams Frame Stripper And Crusher Relationship Specialty Start Date End Date Anil Lynch [address] [place] [address] PCP - General 06/12/22
== END 2025-09-23 16:43 | disposition home or self-care (01) ==
LOC: HO.HMCC 15:22
PROVIDERS: PCP Nurse Practitioner Family; Visit Provider Nurse Practitioner Family
DX: N30.01 Acute cystitis with hematuria (principal); K59.00 Constipation, unspecified; M54.50 Low back pain, unspecified

== ENCOUNTER → 2025-09-23 15:22 | Outpatient (BNVA) | payer OTHER, SELFPAY | PROVIDERS: PCP Nurse Practitioner Family; Visit Provider Nurse Practitioner Family | DX: N30.01 Acute cystitis with hematuria (principal); K59.00 Constipation, unspecified; M54.50 Low back pain, unspecified | CPT/HCPCS: 96127; 99212 ==

== ENCOUNTER 2025-11-04 14:22 | Outpatient (AMB) | payer OTHER, SELFPAY ==
[2025-11-04 14:45] VITALS: BP 104/78; PULSE 68; O2SAT 99; BMI 29.3
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
--- OUTSIDE RECORDS SUMMARY | 2025-11-04 15:32 | XMS_ITS | Clinical Summary ---
Author Organization [facility] Address [address] [place] [address] Care Team Providers Care Oven Technician Name Role Phone Anil Lynch Primary Care Provider [phone] Allergies No known active allergies Medications * [...] patient's age to complete this topic Insurance [facility] [place] [address] [address] [place] [address] MEDICAID Advance Directives Documents on File Type Date Recorded Patient Director Digital Advertising Expl anation Health Care Proxy 06/21/2022 8:38 PM Check list * Full Code (Latest Code Status on File) Date Activated Date Inactivated Comments 06/13/2022 12:13 AM 06/21/2022 3:49 PM Care Teams Oven Technician Relationship Specialty Start Date End Date Anil Lynch [address] [place] [address] PCP - General 06/12/22
--- OUTSIDE RECORDS SUMMARY | 2025-11-04 15:32 | XMS_ITS | Clinical Summary ---
Author Organization [facility] Address [address] [place] [id number] Care Team Providers Care Commercial Property Administrator Name Role Phone Shaista Velasquez MD Primary Care Provider [phone] Allergies Active Allergy Reactions Criticality Noted Date Comments Amoxicillin Other (See Comments) 02/09/2017 Sick to stomache Erythromycin GI Intolerance 02/09/2017 Medications prazosin (MINIPRESS) 2 MG capsule 01/11/2017 Active QUEtiapine (SEROquel) 200 MG tablet 01/26/2017 Active clonazePAM (KlonoPIN) 2 MG tablet 01/31/2017 Active levothyroxine (SYNTHROID, LEVOXYL) 25 MCG tablet 12/15/2016 Active topiramate (TOPAMAX) 100 MG tablet Take by mouth. 11/09/2011 Active MIRTAZAPINE (REMERON ORAL) Take by mouth. Active ZOLPIDEM TARTRATE (AMBIEN ORAL) Take by mouth. Active DULOXETINE HCL (CYMBALTA ORAL) Take by mouth. 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 Neck pain 02/09/2017 Social History Tobacco Use Types Packs/Day Years Used Date Smoking Tobacco: Former Comments:several months ago Alcohol Use Standard Drinks/Week Comments Not Asked 0 (1 standard drink = 0.6 oz pur e alcohol) Comments Unknown Sex and Gender Information Value Date Recorded Sex Assigned at Not on file Legal Sex Female 3:55 AM EST Gender Identity Not on file Sexual Orientation Not on file Last Filed Vital Signs Vital Sign Reading Time Taken Comments Blood Pressure 97/68 02/09/2017 2:13 PM EDT Pulse 86 02/09/2017 2:13 PM EDT Temperature - - Respiratory Rate 16 03/19/2017 11:07 AM EDT Oxygen Saturation - - Inhaled Oxygen Concentration - - Weight 61.2 kg (135 lb) 03/19/2017 11:07 AM EDT Height 154.9 cm (5' 1 ) 03/19/2017 11:07 AM EDT Body Mass Index 25.51 03/19/2017 11:07 AM EDT Plan of Treatment Health Maintenance Due Date Last Done Comments Blood Pressure 1980 Lipid Panel 1980 Depression Screening 1992 Pap Smear 2001 Cervical Cancer Screening 2010 HPV/Cotest 2010 Breast Cancer Screening 2020 DTaP,Tdap,and Td Vaccines (2 - Td or Tdap) 11/05/2021 11/05/2011 CT Colonography 2025 Colonoscopy 2025 Colorectal Cancer Screening 2025 FIT 2025 FOBT 2025 Multitarget Stool DNA (Cologuard) 2025 Sigmoidoscopy 2025 COVID-19 Vaccine (1 - 2024-2 6 season) 2025 Influenza Vaccine (#1) 2025 Hepatitis C Screening Completed 05/29/2017 Meningococcal B Vaccines Aged Out No longer eligible based on patient's age to complete this topic Meningococcal Vaccines Aged Out No lo nger eligible based on patient's age to complete this topic Pneumococcal Vaccine Aged Out No long er eligible based on patient's age to complete this topic Care Teams Commercial Property Administrator Relationship Specialty Start Date End Date Shaista Velasquez MD PCP - General 01/18/17
--- OUTSIDE RECORDS SUMMARY | 2025-11-04 15:32 | XMS_ITS | Clinical Summary ---
Author Organization [facility] Address [address] [address] Phone Care Team Providers Care Veterinary Inspector Name Role Phone Дмитрий Oliveira MD Primary Care Provider [phone] Allergies Active Allergy Reactions Criticality Noted Date [...] EDT) TSH 14.66(H) 0.27 - 4.20 uIU/mL [facility] Blood 06/07/2019 6:03 AM EDT 06/07/2019 6:31 AM EDT us Courtney Machado MD LAB BLOOD BKR ORDERABLE S Final Result [facility] [address] [place] [address] from Last 3 Months or Most Recently Relevant to Health Maintenance Insurance [facility] ACO ACO ACO [employer]CO [employer] ACO Advance Directives For more information, please contact: [phone] (9AM - 5PM [place], Sunday-Sunday) * Full Code (Presumed) (Latest Code Status on File) Date Activated Date Inactivated Comments 05/16/2019 3:29 PM 06/11/2019 1:28 PM Care Teams Veterinary Inspector Relationship Specialty Start Date End Date Дмитрий Oliveira MD [address] [facility] [address] [place] [phone] [email or web address] PCP - General 11/28/13 Additional Source Comments The information contained in this document represents components of the legal health record. It is not the complete legal health record.[facility]
== END 2025-11-04 15:52 | disposition home or self-care (01) ==
LOC: HO.HMCC 14:23
PROVIDERS: PCP Nurse Practitioner Family; Visit Provider Nurse Practitioner Family
DX: Z00.01 Encounter for general adult medical examination with abnormal findings (principal); M54.2 Cervicalgia; Z23 Encounter for immunization; Z12.11 Encounter for screening for malignant neoplasm of colon

== ENCOUNTER → 2025-11-04 14:22 | Outpatient (BNVA) | payer OTHER, SELFPAY | PROVIDERS: PCP Nurse Practitioner Family; Visit Provider Nurse Practitioner Family | DX: Z00.01 Encounter for general adult medical examination with abnormal findings (principal); M54.2 Cervicalgia; Z23 Encounter for immunization | CPT/HCPCS: 90471; 90656; 99396 ==